=== PATIENT | male | born 1970 | race Caucasian/White ===

== ENCOUNTER 2017-03-02 22:52 | Observation (INO) ==
--- NOTE | 2017-03-02 23:13 | Emergency Department Note ---
Disposition Clinical Impression: Altered mental status Disposition: Admitted As Inpatient Referrals: NONE,PCP [Primary Care Provider] - Forms: ED Satisfaction Letter General Adult HPI - General Chief complaint: ED Altered Mental Status Stated complaint: Headache Time Seen by Provider: 03/02/17 22:54 Source: EMS Mode of arrival: EMS Limitations: no limitations Nursing Notes Reviewed: Yes Vital Signs Reviewed: Yes - History of Present Illness Pt Subjective Complaint: "I have a headache and I'm homeless" Onset (ago): day(s) (2-3 days) Location: head (Front - radiates to top of head) Radiation: other (top of head) Pain Severity: moderate Pain Scale: 5 Quality: aching Consistency: constant Improves with: nothing Worsens with: nothing Associated symptoms: Reports: cough, fever/chills, malaise. Denies: confusion, chest pain, diaphoresis, loss of appetite, nausea/vomiting, rash, seizure, shortness of breath, syncope, weakness Treatments Prior to Arrival: none (Although patient has three different hospital bands on and says he wasseen at these other hospitals for a headache as well) - Related Data Allergies Allergy/AdvReac Type Severity Reaction Status Date / Time No Known Allergies Allergy Verified 03/02/17 23:47 All systems ED: reviewed and negative except as stated. Review of Systems: As Per HPI Constitutional: Reports: fever. Denies: chills, weakness Eyes: Denies: eye pain, eye discharge, vision change ENT ED: Reports: congestion. Denies: ear pain, throat pain, hearing loss, dysphagia Cardiovascular: Denies: chest pain, palpitations Respiratory: Reports: cough. Denies: dyspnea, wheezes, hemoptysis, stridor, sputum production Gastrointestinal: Reports: nausea, vomiting. Denies: abdominal pain, diarrhea, constipation Genitourinary: Denies: urgency, dysuria, frequency, hematuria Musculoskeletal: Denies: back pain, neck pain, joint swelling, arthralgia Integumentary: Denies: rash, lesions Neurological: Reports: as per HPI, headache. Denies: weakness, numbness, paresthesias, confusion, abnormal gait, vertigo Psychiatric: Denies: depression, suicidal thoughts, homicidal thoughts, auditory hallucinations, visual hallucinations Hematological/Lymphatic: Denies: easy bleeding, easy bruising, lymphadenopathy Allergic/Immunologic: Denies: facial swelling, urticaria, itchy eyes Past Medical History - Past Medical History Attestation: Yes The following information was validated with the patient. COUNT INCLUDES THE [facility] Narrative: Patient is a [place]. He is currently homeless. He used to live in [place]. He walked here. He has three different hospital ID bands on his right arm. Source: patient Medical history: Reports: no medical history Surgical history: Reports: no surgical history Psychiatric history: Reports: no psych history - Social History Smoking Status: Current some day smoker Smokeless Tobacco Status: No Alcohol use: Reports: none Drug use: Reports: none Physical Exam - General Limitations: no limitations General appearance: alert, in no apparent distress, cachectic, other (poor hygiene) - Head Head exam: atraumatic, normocephalic, normal inspection - Eye Eye exam: Present: normal appearance, PERRL, EOMI. Absent: scleral icterus, conjunctival injection, nystagmus, miosis, mydriasis, periorbital swelling - ENT ENT exam: mucous membranes dry, other (crusted rash around nares and upper lip) - Neck Neck exam: Present: normal inspection, full ROM, trachea midline. Absent: tenderness, meningismus, lymphadenopathy - Chest Chest inspection: Present: normal inspection, symmetric chest wall rise - Respiratory Respiratory exam: Present: normal lung sounds bilaterally. Absent: respiratory distress, wheezes, stridor, accessory muscle use, prolonged expiratory phase - Cardiovascular Cardiovascular exam: Present: regular rate, normal rhythm, normal heart sounds - Extremities Exam Extremities exam: Present: full ROM, normal capillary refill. Absent: pedal edema - Expanded Lower Extremity Exam Gait: observed and normal - Back Exam Back exam: Present: full ROM. Absent: tenderness - Neurological Exam Neurological exam: Present: alert, CN II-XII intact, normal gait. Absent: oriented X3 (oriented to person and year - unsure of location) - Skin Skin exam: Present: warm, dry, intact, normal color Course Course Narrative: PAtient brought from [facility] by perez to the ER for evaluation of AMS. Perez reported "not altered" however upon initial assessment by the nurse, patient is altered. He complains of a headache. He tells the nurse it began 85 years ago. He tells me it began about 2 days ago. He stated that he had taken "A bunch of aspirin" which did not help. Later he stated that he had not taken any meds. He told the nurse that he just returned from [place] 2 weeks ago. He told me that he walked here from [place] looking for work. He is dishevelled, cachectic, disoriented and has very poor hygiene. He is polite and cooperative with the exam. He did not ask for pain meds, but did ask for something to eat. Tylenol, food, labs, CT head and CXR ordered. Case discussed with Dr. Richmond. He has had face to face time with the patient, has reviewed the EKG, added a troponin, and otherwise agrees with the plan. CT is normal, CXR normal. Labs are essentially normal. EKG shows sinus arrhythmia with 2mm of ST elevation in II, III, AVF and V@, V3. There are no reciprocal changes. Repeat EKG looks similar. Patient has no chest pain, dizziness, syncope, dyspnea or DAVID[place]. Vital Signs Temperature 98.0 F 03/02/17 22:54 Pulse Rate 68 03/02/17 22:54 Respiratory Rate 18 03/02/17 22:54 Blood Pressure 114/81 03/02/17 22:54 O2 Sat by Pulse Oximetry 96 03/02/17 22:54 Temperature 98.0 F 03/02/17 22:54 Pulse Rate 61 03/03/17 02:57 Respiratory Rate 13 03/03/17 02:57 Blood Pressure 107/57 03/03/17 02:57 O2 Sat by Pulse Oximetry 99 03/03/17 02:57 Oxygen Delivery Oxygen Delivery Nasal Cannula Medical Decision Making - Lab Data Result diagrams: 03/02/17 23:24 03/02/17 23:24 Lab Results 03/02/17 03/02/17 03/02/17 Range/Units 23:24 23:24 23:24 WBC 9.3 (4.3-11.1) K/mcL RBC 3.54 L (4.19-5.50) M/mcL Hgb 11.8 L (12.9-16.9) g/dL Hct 36.1 L (37.5-50.1) % MCV 102.0 H (83.0-100.0) fL MCH 33.3 (28.0-33.3) pg MCHC 32.7 (31.6-35.5) g/dL RDW 13.0 (11.5-14.5) % Plt Count 262 (140-400) K/mcL MPV 9.4 (9.4-12.4) fL Immature Gran % 0.3 (0-4) % Seg Neutrophils % 73.0 % Lymphocytes % 18.5 % Monocytes % 6.9 % Eosinophils % 1.0 % Basophils % 0.3 % Neutrophils # 6.8 (1.6-8.9) K/mcL Lymphocytes # 1.7 (0.6-4.6) K/mcL Monocytes # 0.6 (0.0-1.3) K/mcL Eosinophils # 0.1 (0.0-0.6) K/mcL Basophils # 0.0 (0.0-0.2) K/mcL Sodium 140 (136-145) mEq/L Potassium 3.7 (3.5-4.5) mEq/L Chloride 110 H (98-109) mEq/L Carbon Dioxide 23 (19-29) mEq/L BUN 22 (8-26) mg/dL Creatinine 0.85 (0.72-1.25) mg/dL Est GFR ( Amer) > 60 (> 60) Est GFR (Non-Af Amer) > 60 (> 60) BUN/Creatinine Ratio 26 (6-26) Glucose 96 (70-99) mg/dL Calculated Osmolality 293 (280-300) Calcium 8.4 L (8.6-10.8) mg/dL Magnesium 2.0 (1.6-2.6) mg/dL Total Bilirubin 0.4 (0.2-1.2) mg/dL Direct Bilirubin 0.1 (0.0-0.5) mg/dL Indirect Bilirubin 0.3 (0.0-1.2) mg/dL AST 20 (5-34) Units/L ALT 15 (0-55) Units/L Alkaline Phosphatase 68 (38-126) Units/L Ammonia 33 (18-72) mcmol/L Troponin I (0-0.03) ng/mL Serum Total Protein 6.5 (6.0-8.3) g/dL Albumin 3.5 (3.5-5.0) g/dL Globulin 3.0 (2.4-3.5) g/dL Albumin/Globulin Ratio 1.2 (1.1-2.2) Urine Color (Yellow) Urine Clarity (Clear) Urine pH (5.0-8.0) pH Units Ur Specific [place] (1.010-1.025) Urine Protein (Neg-Trace) mg/dL Urine Glucose (UA) (Normal) mg/dL Urine Ketones (Negative) mg/dL Urine Blood (Negative) Urine Nitrite (Negative) Urine Bilirubin (Negative) Urine Urobilinogen (Normal) mg/dL Ur Leukocyte Esterase (Negative) Ur Culture Indicated? (NO) CSF Volume mL CSF Appearance (Clear) CSF Color (Colorless) CSF RBC (0.000 - 0.002) M/mcL CSF Tot Nucleated Cells (0-5) TNC/mcL CSF Seg Neutrophils CSF Band Neutrophils % CSF Lymphocytes % CSF Monocytes % CSF Eosinophils % CSF Basophils % CSF Other Cells % CSF Glucose (40-70) mg/dL CSF Xanth Comm (Not Observe) CSF Total Protein (15-45) mg/dL Salicylates < 5.0 L (15.0-30.0) mg/dL Urine Opiates Screen (Dfgmiu=650) ng/mL Acetaminophen < 1.0 L (10-30) mcg/mL Ur Barbiturates Screen (Oopibs=827) ng/mL Ur Phencyclidine Scrn (Cutoff=25) ng/mL Ur Amphetamines Screen (Rqasgx=2675) ng/mL U Benzodiazepines Scrn (Edqftm=722) ng/mL Urine Cocaine Screen (Cutoff= 300) ng/mL U Marijuana (THC) Screen (Cutoff = 50) ng/mL Ethyl Alcohol < 10 (0-10) mg/dL 03/02/17 03/02/17 03/02/17 Range/Units 23:24 23:25 23:25 WBC (4.3-11.1) K/mcL RBC (4.19-5.50) M/mcL Hgb (12.9-16.9) g/dL Hct (37.5-50.1) % MCV (83.0-100.0) fL MCH (28.0-33.3) pg MCHC (31.6-35.5) g/dL RDW (11.5-14.5) % Plt Count (140-400) K/mcL MPV (9.4-12.4) fL Immature Gran % (0-4) % Seg Neutrophils % % Lymphocytes % % Monocytes % % Eosinophils % % Basophils % % Neutrophils # (1.6-8.9) K/mcL Lymphocytes # (0.6-4.6) K/mcL Monocytes # (0.0-1.3) K/mcL Eosinophils # (0.0-0.6) K/mcL Basophils # (0.0-0.2) K/mcL Sodium (136-145) mEq/L Potassium (3.5-4.5) mEq/L Chloride (98-109) mEq/L Carbon Dioxide (19-29) mEq/L BUN (8-26) mg/dL Creatinine (0.72-1.25) mg/dL Est GFR ( Amer) (> 60) Est GFR (Non-Af Amer) (> 60) BUN/Creatinine Ratio (6-26) Glucose (70-99) mg/dL Calculated Osmolality (280-300) Calcium (8.6-10.8) mg/dL Magnesium (1.6-2.6) mg/dL Total Bilirubin (0.2-1.2) mg/dL Direct Bilirubin (0.0-0.5) mg/dL Indirect Bilirubin (0.0-1.2) mg/dL AST (5-34) Units/L ALT (0-55) Units/L Alkaline Phosphatase (38-126) Units/L Ammonia (18-72) mcmol/L Troponin I 0.00 (0-0.03) ng/mL Serum Total Protein (6.0-8.3) g/dL Albumin (3.5-5.0) g/dL Globulin (2.4-3.5) g/dL Albumin/Globulin Ratio (1.1-2.2) Urine Color Yellow (Yellow) Urine Clarity Clear (Clear) Urine pH 6.0 (5.0-8.0) pH Units Ur Specific [place] 1.025 (1.010-1.025) Urine Protein Negative (Neg-Trace) mg/dL Urine Glucose (UA) Normal (Normal) mg/dL Urine Ketones Negative (Negative) mg/dL Urine Blood Negative (Negative) Urine Nitrite Negative (Negative) Urine Bilirubin Negative (Negative) Urine Urobilinogen Normal (Normal) mg/dL Ur Leukocyte Esterase Negative (Negative) Ur Culture Indicated? NO (NO) CSF Volume mL CSF Appearance (Clear) CSF Color (Colorless) CSF RBC (0.000 - 0.002) M/mcL CSF Tot Nucleated Cells (0-5) TNC/mcL CSF Seg Neutrophils CSF Band Neutrophils % CSF Lymphocytes % CSF Monocytes % CSF Eosinophils % CSF Basophils % CSF Other Cells % CSF Glucose (40-70) mg/dL CSF Xanth Comm (Not Observe) CSF Total Protein (15-45) mg/dL Salicylates (15.0-30.0) mg/dL Urine Opiates Screen Negative (Uopxqa=291) ng/mL Acetaminophen (10-30) mcg/mL Ur Barbiturates Screen Negative (Obygny=998) ng/mL Ur Phencyclidine Scrn Negative (Cutoff=25) ng/mL Ur Amphetamines Screen Negative (Uhfnho=0959) ng/mL U Benzodiazepines Scrn Negative (Jvfdjo=871) ng/mL Urine Cocaine Screen Negative (Cutoff= 300) ng/mL U Marijuana (THC) Screen Negative (Cutoff = 50) ng/mL Ethyl Alcohol (0-10) mg/dL 15/ Range/Units 03:15 WBC (4.3-11.1) K/mcL RBC (4.19-5.50) M/mcL Hgb (12.9-16.9) g/dL Hct (37.5-50.1) % MCV (83.0-100.0) fL MCH (28.0-33.3) pg MCHC (31.6-35.5) g/dL RDW (11.5-14.5) % Plt Count (140-400) K/mcL MPV (9.4-12.4) fL Immature Gran % (0-4) % Seg Neutrophils % % Lymphocytes % % Monocytes % % Eosinophils % % Basophils % % Neutrophils # (1.6-8.9) K/mcL Lymphocytes # (0.6-4.6) K/mcL Monocytes # (0.0-1.3) K/mcL Eosinophils # (0.0-0.6) K/mcL Basophils # (0.0-0.2) K/mcL Sodium (136-145) mEq/L Potassium (3.5-4.5) mEq/L Chloride (98-109) mEq/L Carbon Dioxide (19-29) mEq/L BUN (8-26) mg/dL Creatinine (0.72-1.25) mg/dL Est GFR ( Amer) (> 60) Est GFR (Non-Af Amer) (> 60) BUN/Creatinine Ratio (6-26) Glucose (70-99) mg/dL Calculated Osmolality (280-300) Calcium (8.6-10.8) mg/dL Magnesium (1.6-2.6) mg/dL Total Bilirubin (0.2-1.2) mg/dL Direct Bilirubin (0.0-0.5) mg/dL Indirect Bilirubin (0.0-1.2) mg/dL AST (5-34) Units/L ALT (0-55) Units/L Alkaline Phosphatase (38-126) Units/L Ammonia (18-72) mcmol/L Troponin I (0-0.03) ng/mL Serum Total Protein (6.0-8.3) g/dL Albumin (3.5-5.0) g/dL Globulin (2.4-3.5) g/dL Albumin/Globulin Ratio (1.1-2.2) Urine Color (Yellow) Urine Clarity (Clear) Urine pH (5.0-8.0) pH Units Ur Specific [place] (1.010-1.025) Urine Protein (Neg-Trace) mg/dL Urine Glucose (UA) (Normal) mg/dL Urine Ketones (Negative) mg/dL Urine Blood (Negative) Urine Nitrite (Negative) Urine Bilirubin (Negative) Urine Urobilinogen (Normal) mg/dL Ur Leukocyte Esterase (Negative) Ur Culture Indicated? (NO) CSF Volume 4.0 mL CSF Appearance Clear (Clear) CSF Color Colorless (Colorless) CSF RBC < 0.002 (0.000 - 0.002) M/mcL CSF Tot Nucleated Cells < 3 (0-5) TNC/mcL CSF Seg Neutrophils Test Not Performed CSF Band Neutrophils % Test Not Performed CSF Lymphocytes % Test Not Performed CSF Monocytes % Test Not Performed CSF Eosinophils % Test Not Performed CSF Basophils % Test Not Performed CSF Other Cells % Test Not Performed CSF Glucose 72 H (40-70) mg/dL CSF Xanth Comm Not Observed (Not Observe) CSF Total Protein 36 (15-45) mg/dL Salicylates (15.0-30.0) mg/dL Urine Opiates Screen (Ixdqwq=592) ng/mL Acetaminophen (10-30) mcg/mL Ur Barbiturates Screen (Evpfot=234) ng/mL Ur Phencyclidine Scrn (Cutoff=25) ng/mL Ur Amphetamines Screen (Nrppur=8992) ng/mL U Benzodiazepines Scrn (Rgapbc=199) ng/mL Urine Cocaine Screen (Cutoff= 300) ng/mL U Marijuana (THC) Screen (Cutoff = 50) ng/mL Ethyl Alcohol (0-10) mg/dL Attestation Statement - Attestation Attestation: I have personally performed a face to face evaluation on this patient. I have reviewed and agree with the care plan. 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 Has h/o schizophrenia per report. Wearing wristbands from other facilities. I'm told he's been walking/hitchhiking from [place]. Pt is filthy, obviously not caring for himself. EKG is borderline - close to [address] elevation in V3, close to [address] elevation in inferior leads, does not quite meet EKG criteria for STEMI and has no c/o CP/SOB. No reciprocal changes, no old EKGs available for comparison. Second EKG appears as though precordial leads may have been moved as V3 has similar morphology to previous V4. Trending Troponins/EKGs seems the best course here. Given c/o GREER, mental status with unknown baseline, LP is warranted. Pt does not want it, but can obviously not comprehend the risks of refusing and therefore cannot provide an informed refusal for an obviously indicated procedure. Pt required sedation to keep him in ED and to facilitate procedure. After Haldol and Ativan, pt was controlled and no other sedatives were required. I was present and supervising for Dr. Parkinson's LP, see his procedure note for details. Hospitalist paged for admission.
[2017-03-02 23:33] LABS: Bilirubin,Urine Negative (Negative); Blood,Urine Negative (Negative); Clarity,Urine Clear (Clear); Color,Urine Yellow (Yellow); Glucose,Urine (UA) Normal (Normal); Ketones,Urine Negative (Negative); Leukocyte Esterase,Urine Negative (Negative); Nitrite,Urine Negative (Negative); Protein,Urine Negative (Neg-Trace); Specific Gravity,Urine 1.025 (1.010-1.025); Urobilinogen,Urine Normal (Normal)
[2017-03-02 23:33] LABS: Basophils % 0.3 %; Eosinophils # 0.1 K/mcL (0.0-0.6); Hematocrit 36.1 % (37.5-50.1); Hemoglobin 11.8 g/dL (12.9-16.9); Immature Granulocytes % 0.3 % (0-4); Lymphocytes # 1.7 K/mcL (0.6-4.6); Lymphocytes % 18.5 %; Mean Corpuscular HGB Conc 32.7 g/dL (31.6-35.5); Mean Corpuscular Hemoglobin 33.3 pg (28.0-33.3); Mean Platelet Volume 9.4 fL (9.4-12.4); Monocytes # 0.6 K/mcL (0.0-1.3); Monocytes % 6.9 %; Neutrophils # 6.8 K/mcL (1.6-8.9); Platelet Count 262 K/mcL (140-400); Red Blood Count 3.54 M/mcL (4.19-5.50)
[2017-03-02 23:38] LABS: Amphetamine Screen,Urine Negative ng/mL (Cutoff=1000); Barbiturate Screen,Urine Negative ng/mL (Cutoff=200); Benzodiazepines Screen,Urine Negative ng/mL (Cutoff=200); Cannabinoid Screen,Urine Negative ng/mL (Cutoff = 50); Cocaine Screen,Urine Negative ng/mL (Cutoff= 300); Opiate Screen,Urine Negative ng/mL (Cutoff=300); Phencyclidine Screen,Urine Negative ng/mL (Cutoff=25)
[2017-03-02 23:48] LABS: Acetaminophen < 1.0 mcg/mL (10-30); Alanine Aminotransferase 15 Units/L (0-55); Albumin 3.5 g/dL (3.5-5.0); Albumin/Globulin Ratio 1.2 (1.1-2.2); Alkaline Phosphatase 68 Units/L (38-126); Aspartate Amino Transferase 20 Units/L (5-34); BUN/Creatinine Ratio 26 (6-26); Bilirubin,Direct 0.1 mg/dL (0.0-0.5); Bilirubin,Indirect 0.3 mg/dL (0.0-1.2); Bilirubin,Total 0.4 mg/dL (0.2-1.2); Blood Urea Nitrogen 22 mg/dL (8-26); Calcium 8.4 mg/dL (8.6-10.8); Carbon Dioxide 23 mEq/L (19-29); Chloride 110 mEq/L (98-109); Ethanol < 10 mg/dL (0-10); Glucose 96 mg/dL (70-99); Osmolality,Calculated 293 (280-300); Potassium 3.7 mEq/L (3.5-4.5); Salicylate < 5.0 mg/dL (15.0-30.0); Sodium 140 mEq/L (136-145); Total Protein 6.5 g/dL (6.0-8.3); eGFR For African Americans > 60 (> 60); eGFR For Non-African Americans > 60 (> 60)
[2017-03-03] MEDS ORDERED: 0.9 % Sodium Chloride 1,000 ML IVC ONE (01:33)
[2017-03-03] MEDS ORDERED: Lidocaine -MPF 2% 5 ML VIAL INFILT ONE (01:33)
[2017-03-03] MEDS ORDERED: Haloperidol Lactate 5 MG/ML VIAL IM STA (01:54)
[2017-03-03] MEDS: Haloperidol Lactate 5 MG/ML VIAL IVP ONE ×2 (02:10→05:21)
[2017-03-03] MEDS ORDERED: Haloperidol Lactate 5 MG/ML VIAL ONE (02:17)
[2017-03-03] MEDS ORDERED: *HR* LORazepam 2 MG/ML VIAL ONE (02:17)
[2017-03-03] MEDS ORDERED: *HR* LORazepam 2 MG/ML VIAL IVP ONE (02:30)
[2017-03-03] MEDS ORDERED: Haloperidol Lactate 5 MG/ML VIAL IVP ONE ×2 (02:30)
--- NOTE | 2017-03-03 02:43 | Emergency Department Note ---
Disposition Clinical Impression: Altered mental status Qualifiers: Altered mental status type: unspecified Qualified Code(s): R41.82 - Altered mental status, unspecified Disposition: Admitted As Inpatient Referrals: NONE,PCP [Primary Care Provider] - Forms: ED Satisfaction Letter Time of Disposition: 03:26 General Adult HPI - General Chief complaint: ED Altered Mental Status Stated complaint: Headache Time Seen by Provider: 03/02/17 22:54 Source: EMS Mode of arrival: EMS Limitations: no limitations Nursing Notes Reviewed: Yes Vital Signs Reviewed: Yes - History of Present Illness Location: head (Front - radiates to top of head) Pain Scale: 5 Quality: aching Improves with: nothing Worsens with: nothing Associated symptoms: Reports: cough, fever/chills, malaise. Denies: confusion, chest pain, diaphoresis, loss of appetite, nausea/vomiting, rash, seizure, shortness of breath, syncope, weakness Treatments Prior to Arrival: none (Although patient has three different hospital bands on and says he wasseen at these other hospitals for a headache as well) - Related Data Allergies Allergy/AdvReac Type Severity Reaction Status Date / Time No Known Allergies Allergy Verified 03/02/17 23:47 Constitutional: Reports: fever. Denies: chills, weakness Eyes: Denies: eye pain, eye discharge, vision change ENT ED: Reports: congestion. Denies: ear pain, throat pain, hearing loss, dysphagia Cardiovascular: Denies: chest pain, palpitations Respiratory: Reports: cough. Denies: dyspnea, wheezes, hemoptysis, stridor, sputum production Gastrointestinal: Reports: nausea, vomiting. Denies: abdominal pain, diarrhea, constipation Genitourinary: Denies: urgency, dysuria, frequency, hematuria Musculoskeletal: Denies: back pain, neck pain, joint swelling, arthralgia Integumentary: Denies: rash, lesions Neurological: Reports: as per HPI, headache. Denies: weakness, numbness, paresthesias, confusion, abnormal gait, vertigo Psychiatric: Denies: depression, suicidal thoughts, homicidal thoughts, auditory hallucinations, visual hallucinations Hematological/Lymphatic: Denies: easy bleeding, easy bruising, lymphadenopathy Allergic/Immunologic: Denies: facial swelling, urticaria, itchy eyes Past Medical History - Past Medical History Medical history: Reports: no medical history Surgical history: Reports: no surgical history Psychiatric history: Reports: no psych history - Social History Smoking Status: Current some day smoker Smokeless Tobacco Status: No Alcohol use: Reports: none Drug use: Reports: none Physical Exam - General Limitations: no limitations General appearance: alert, in no apparent distress, cachectic, other (poor hygiene) Course Course Narrative: I only performed LP on patient, this note was opened as procedure note, please see Dr. Richmond and Kerri David' notes for event encounter. Vital Signs Temperature 98.0 F 03/02/17 22:54 Pulse Rate 68 03/02/17 22:54 Respiratory Rate 18 03/02/17 22:54 Blood Pressure 114/81 03/02/17 22:54 O2 Sat by Pulse Oximetry 96 03/02/17 22:54 Temperature 98.0 F 03/02/17 22:54 Pulse Rate 61 03/03/17 02:57 Respiratory Rate 13 03/03/17 02:57 Blood Pressure 107/57 03/03/17 02:57 O2 Sat by Pulse Oximetry 99 03/03/17 02:57 Oxygen Delivery Oxygen Delivery Nasal Cannula Procedures - Lumbar Puncture Time Out Performed: Yes Patient Position: upright Skin Prep: Povidone-Iodine 1% Local Anesthetic: lidocaine 1% Amount of anesthesia used (mL): 5 Spinal Needle Gauge: 20G Interspace Used: L4-L5 Fluid Initially Obtained: clear Additional Comments: Consent implied as patient was altered, unable understand risks and benefits. He was sedated during the procedure with haldol and etomidate, held upright by Dr. Richmond who was present during entire procedure. Patient was on oxygen, ETCO2 monitoring, cardiac and continuous pulse ox monitoring during proedure. Sedation performed by Dr. Richmond and Dr. Garcia. Please see their notes for any additional details. No complications, tolerated well. Complications: none Medical Decision Making - Lab Data Result diagrams: 03/02/17 23:24 03/02/17 23:24 Lab Results 03/02/17 03/02/17 03/02/17 Range/Units 23:24 23:24 23:24 WBC 9.3 (4.3-11.1) K/mcL RBC 3.54 L (4.19-5.50) M/mcL Hgb 11.8 L (12.9-16.9) g/dL Hct 36.1 L (37.5-50.1) % MCV 102.0 H (83.0-100.0) fL MCH 33.3 (28.0-33.3) pg MCHC 32.7 (31.6-35.5) g/dL RDW 13.0 (11.5-14.5) % Plt Count 262 (140-400) K/mcL MPV 9.4 (9.4-12.4) fL Immature Gran % 0.3 (0-4) % Seg Neutrophils % 73.0 % Lymphocytes % 18.5 % Monocytes % 6.9 % Eosinophils % 1.0 % Basophils % 0.3 % Neutrophils # 6.8 (1.6-8.9) K/mcL Lymphocytes # 1.7 (0.6-4.6) K/mcL Monocytes # 0.6 (0.0-1.3) K/mcL Eosinophils # 0.1 (0.0-0.6) K/mcL Basophils # 0.0 (0.0-0.2) K/mcL Sodium 140 (136-145) mEq/L Potassium 3.7 (3.5-4.5) mEq/L Chloride 110 H (98-109) mEq/L Carbon Dioxide 23 (19-29) mEq/L BUN 22 (8-26) mg/dL Creatinine 0.85 (0.72-1.25) mg/dL Est GFR ( Amer) > 60 (> 60) Est GFR (Non-Af Amer) > 60 (> 60) BUN/Creatinine Ratio 26 (6-26) Glucose 96 (70-99) mg/dL Calculated Osmolality 293 (280-300) Calcium 8.4 L (8.6-10.8) mg/dL Magnesium 2.0 (1.6-2.6) mg/dL Total Bilirubin 0.4 (0.2-1.2) mg/dL Direct Bilirubin 0.1 (0.0-0.5) mg/dL Indirect Bilirubin 0.3 (0.0-1.2) mg/dL AST 20 (5-34) Units/L ALT 15 (0-55) Units/L Alkaline Phosphatase 68 (38-126) Units/L Ammonia 33 (18-72) mcmol/L Troponin I (0-0.03) ng/mL Serum Total Protein 6.5 (6.0-8.3) g/dL Albumin 3.5 (3.5-5.0) g/dL Globulin 3.0 (2.4-3.5) g/dL Albumin/Globulin Ratio 1.2 (1.1-2.2) Urine Color (Yellow) Urine Clarity (Clear) Urine pH (5.0-8.0) pH Units Ur Specific [place] (1.010-1.025) Urine Protein (Neg-Trace) mg/dL Urine Glucose (UA) (Normal) mg/dL Urine Ketones (Negative) mg/dL Urine Blood (Negative) Urine Nitrite (Negative) Urine Bilirubin (Negative) Urine Urobilinogen (Normal) mg/dL Ur Leukocyte Esterase (Negative) Ur Culture Indicated? (NO) Salicylates < 5.0 L (15.0-30.0) mg/dL Urine Opiates Screen (Uktzel=940) ng/mL Acetaminophen < 1.0 L (10-30) mcg/mL Ur Barbiturates Screen (Algzab=552) ng/mL Ur Phencyclidine Scrn (Cutoff=25) ng/mL Ur Amphetamines Screen (Pqymiu=7219) ng/mL U Benzodiazepines Scrn (Lvkrcg=490) ng/mL Urine Cocaine Screen (Cutoff= 300) ng/mL U Marijuana (THC) Screen (Cutoff = 50) ng/mL Ethyl Alcohol < 10 (0-10) mg/dL 03/02/17 03/02/17 03/02/17 Range/Units 23:24 23:25 23:25 WBC (4.3-11.1) K/mcL RBC (4.19-5.50) M/mcL Hgb (12.9-16.9) g/dL Hct (37.5-50.1) % MCV (83.0-100.0) fL MCH (28.0-33.3) pg MCHC (31.6-35.5) g/dL RDW (11.5-14.5) % Plt Count (140-400) K/mcL MPV (9.4-12.4) fL Immature Gran % (0-4) % Seg Neutrophils % % Lymphocytes % % Monocytes % % Eosinophils % % Basophils % % Neutrophils # (1.6-8.9) K/mcL Lymphocytes # (0.6-4.6) K/mcL Monocytes # (0.0-1.3) K/mcL Eosinophils # (0.0-0.6) K/mcL Basophils # (0.0-0.2) K/mcL Sodium (136-145) mEq/L Potassium (3.5-4.5) mEq/L Chloride (98-109) mEq/L Carbon Dioxide (19-29) mEq/L BUN (8-26) mg/dL Creatinine (0.72-1.25) mg/dL Est GFR ( Amer) (> 60) Est GFR (Non-Af Amer) (> 60) BUN/Creatinine Ratio (6-26) Glucose (70-99) mg/dL Calculated Osmolality (280-300) Calcium (8.6-10.8) mg/dL Magnesium (1.6-2.6) mg/dL Total Bilirubin (0.2-1.2) mg/dL Direct Bilirubin (0.0-0.5) mg/dL Indirect Bilirubin (0.0-1.2) mg/dL AST (5-34) Units/L ALT (0-55) Units/L Alkaline Phosphatase (38-126) Units/L Ammonia (18-72) mcmol/L Troponin I 0.00 (0-0.03) ng/mL Serum Total Protein (6.0-8.3) g/dL Albumin (3.5-5.0) g/dL Globulin (2.4-3.5) g/dL Albumin/Globulin Ratio (1.1-2.2) Urine Color Yellow (Yellow) Urine Clarity Clear (Clear) Urine pH 6.0 (5.0-8.0) pH Units Ur Specific [place] 1.025 (1.010-1.025) Urine Protein Negative (Neg-Trace) mg/dL Urine Glucose (UA) Normal (Normal) mg/dL Urine Ketones Negative (Negative) mg/dL Urine Blood Negative (Negative) Urine Nitrite Negative (Negative) Urine Bilirubin Negative (Negative) Urine Urobilinogen Normal (Normal) mg/dL Ur Leukocyte Esterase Negative (Negative) Ur Culture Indicated? NO (NO) Salicylates (15.0-30.0) mg/dL Urine Opiates Screen Negative (Nqcbgg=080) ng/mL Acetaminophen (10-30) mcg/mL Ur Barbiturates Screen Negative (Mxlrso=289) ng/mL Ur Phencyclidine Scrn Negative (Cutoff=25) ng/mL Ur Amphetamines Screen Negative (Emiflg=8263) ng/mL U Benzodiazepines Scrn Negative (Uxmxtl=734) ng/mL Urine Cocaine Screen Negative (Cutoff= 300) ng/mL U Marijuana (THC) Screen Negative (Cutoff = 50) ng/mL Ethyl Alcohol (0-10) mg/dL
[2017-03-03] MEDS ORDERED: *HR* Etomidate 20 MG/10 ML AMPUL IVP ONE (02:45)
[2017-03-03 03:45] LABS: Red Blood Cell,CSF < 0.002 M/mcL
[2017-03-03 03:58] LABS: Glucose,CSF 72 mg/dL (40-70); Total Protein,CSF 36 mg/dL (15-45)
[2017-03-03 04:04] LABS: Appearance,CSF Clear (Clear)
[2017-03-03] MEDS ORDERED: Ondansetron ODT 4 MG TAB.RAPDIS SL PRN (04:35)
[2017-03-03] MEDS ORDERED: Acetaminophen 325 MG TABLET PO PRN (04:35)
--- NOTE | 2017-03-03 04:57 | Internal Med History&Physical ---
<Kristian Lynn - Last Filed: 03/03/17 05:33> Date of Encounter: 03/03/17 Time of Encounter: 04:15 Assessment and Plan (1) Acute delirium Current visit: Yes Status: Acute Lumbar puncture results were not indicative of any infection. CSF culture was negative. UA was negative for infection. Acute delirium likely secondary psychiatric history. - Psych consult. (2) Abnormal EKG Current visit: Yes Status: Acute EKG shows borderline ST-elevations in inferior leads. Troponin on arrival was negative. Patient reports no chest pain per ED. - Continue to trend troponins. - Echocardiogram. - Cardiology consult. (3) DVT prophylaxis Current visit: Yes Status: Acute - Lovenox 40 mg IV sq qd. Internal Medicine - H&P: HPI Chief complaint: GREER Admitted From: Emergency Dept History of present illness: Mr. Murray is a 47 year old male with a PMH of schizophrenia that presents for GREER and AMS. Patient was brought into the ER by [facility] office by humberto. He told the ED that his GREER began 2 days ago and had taken "a bunch of aspirin" to to alleviate the pain, but it did not seem to help. Patient reported no chest pain, dizziness, syncope, dyspnea or DAVIDSON. Patient seemed altered and would give conflicting accounts to the ED. He is currently homeless. He states that he had walked from [place] to here. He had tags from 3 different hospitals on his arm when he came in. Patient was given haldol and etomidate for sedation in order to perform a lumbar puncture in the ED. When I saw the patient, I was unable to get a history from him due to him being sedated. Past Med Surg Social Fam HX - Past Medical History Medical history: no medical history Psychiatric history: no psych history - Past Surgical History Surgical History: no surgical history - Social History Smoking Status: Current some day smoker Smokeless Tobacco Status: No Alcohol use: none Drug use: none Internal Medicine - H&P: Meds 3 Allergy/AdvReac Type Severity Reaction Status Date / Time No Known Allergies Allergy Verified 03/02/17 23:47 ROS unobtainable: due to mental status All Systems PM: A 10-system review of systems was performed and is negative for pertinent findings except as documented above in the HPI. - Constitutional Vitals: Temp Pulse Resp BP Pulse Ox 98.0 F 61 13 107/57 99 03/02/17 22:54 03/03/17 02:57 03/03/17 02:57 03/03/17 02:57 03/03/17 02:57 General appearance: Present: cachectic, disheveled - Respiratory Respiratory exam: Present: CTAB. Absent: rales, respiratory distress, rhonchi, wheezes - Cardiovascular Cardiovascular exam: Present: RRR, +S1, +S2 - GI/Abdominal GI/Abdominal exam: Present: normal bowel sounds, soft - Extremities Exam Extremities exam: Present: normal capillary refill, radial pulses palpable and symmetrical. Absent: cyanotic, pedal edema Internal Med - H&P Results - Labs CBC & Chem 7: 03/02/17 23:24 03/02/17 23:24 Labs: Short CBC 03/02/17 Range/Units 23:24 WBC 9.3 (4.3-11.1) K/mcL Hgb 11.8 L (12.9-16.9) g/dL Hct 36.1 L (37.5-50.1) % Plt Count 262 (140-400) K/mcL Neutrophils # 6.8 (1.6-8.9) K/mcL BMP 03/02/17 23:24 Sodium 140 Potassium 3.7 Chloride 110 H Carbon Dioxide 23 BUN 22 Creatinine 0.85 Glucose 96 Calcium 8.4 L Cardiac Enzymes 03/02/17 Range/Units 23:24 Troponin I 0.00 (0-0.03) ng/mL Liver Function 03/02/17 Range/Units 23:24 Total Bilirubin 0.4 (0.2-1.2) mg/dL Direct Bilirubin 0.1 (0.0-0.5) mg/dL AST 20 (5-34) Units/L ALT 15 (0-55) Units/L Alkaline Phosphatase 68 (38-126) Units/L Albumin 3.5 (3.5-5.0) g/dL Urine 03/02/17 Range/Units 23:25 Urine Color Yellow (Yellow) Urine Clarity Clear (Clear) Urine pH 6.0 (5.0-8.0) pH Units Ur Specific [place] 1.025 (1.010-1.025) Urine Protein Negative (Neg-Trace) mg/dL Urine Glucose (UA) Normal (Normal) mg/dL - Impressions ITS Impressions Chest X-Ray 03/02/17 23:01 IMPRESSION: No acute disease. D/ / Moe Benavides MD / Moe Benavides MD Interpreting Provider: Moe Benavides MD Head CT 03/02/17 23:03 IMPRESSION: No acute intracranial abnormality. D/ / Rogelio Herrera MD / Rogelio Herrera MD Interpreting Provider: Rogelio Herrera MD <Viktor Milner - Last Filed: 03/03/17 06:39> Date of Encounter: 03/03/17 Internal Medicine - H&P: HPI History of present illness: Mr. Murray is a 47 year old male All Systems PM: A 10-system review of systems was performed and is negative for pertinent findings except as documented above in the HPI. - Constitutional Vitals: Temp Pulse Resp BP Pulse Ox 97.4 F L 52 12 96/50 99 03/03/17 05:22 03/03/17 05:22 03/03/17 05:22 03/03/17 05:22 03/03/17 05:22 Internal Med - H&P Results - Labs CBC & Chem 7: 03/02/17 23:24 03/02/17 23:24 Labs: Cardiac Enzymes 03/03/17 Range/Units 05:33 Troponin I 0.00 (0-0.03) ng/mL - Attending Attestation I examined this patient and my medical decision-making was reviewed with the Resident Physician Dr. Lynn. I agree with the documented findings, disposition and treatment plan as described except to the extent set forth below. Mr. Murray is a 47 year old home less pt with a PMH of schizophrenia was brought into the ER by [facility]. Patient reported no chest pain , dizziness, syncope, dyspnea or DAVIDSON. Patient seemed altered and would give conflicting accounts to the ED. He is currently homeless. He states that he had walked from [place] to here. He had tags from 3 different hospitals on his arm when he came in. Patient was given Haldol and etomidate for sedation in order to perform a lumbar puncture in the ED. When I saw the pt, he was sedated, unable to get any history fro pt. Gen: Sedative Chest: Diminished BS b/l basal regions.. No crackles Heart: S1 S2 + RRR No murmurs a/p 1. Acute delirium - mostly due to his underline schizophrenia Reviewed CSF analysis - no signs of infection Consulted Psych for further eval SW consulted for placement 2. Abnormal EKG Reviewed his EKG by myself, showing Non specific ST elevation in inferior leads started him on ASA Trend on Troponin will get an 2 D Echo will consult Card in AM keep him NPO.. If he needs any stress test.
[2017-03-03] MEDS: Aspirin Enteric Coated 81 MG Tablet PO SCH (06:15)
[2017-03-03] MEDS: 0.9 % Sodium Chloride 1,000 ML IVC SCH ×2 (06:16→19:36)
--- NOTE | 2017-03-03 09:45 | Cardiology Consult Note ---
Date of Encounter: 03/03/17 Time of Encounter: 08:45 Assessment and Plan (1) Abnormal EKG Current Visit: Yes Status: Acute Patient is sedated and unarousable Difficult to assess current cardiac status given mental state EKG has nonspecific ST-T wave changes, however not hugely suspicious for ischemia We will get a TTE and check TSH Reassess when patient becomes alert Recommendations to follow Discussion w patient/family: The assessment and plan as outlined above was discussed with the patient and/or family members who expressed understanding and agreement. All questions were answered. Thank you for involving us in the care of your patient. Please call with any questions. History of Present Illness Consult date: 03/02/17 Requesting physician: Kristian Lynn Consult reason: Abnormal EKG Chief complaint: Headache with altered mental status History of present illness: Mr. Murray is a 47 year old male with unknown medical history who presented the ED with GREER and altered mental status. He has apparently been diagnosed with schizophrenia in the past. The patient is sedated at time of exam, and I am unable to retrieve history from him. Instead, I received report from nursing and primary team. The patient apparently came to the ED with 2d history of nonremitting headache for which he took "a bunch of aspirin" and had no benefit. The man is homeless, and says that he walked to this ED from [place]. He was apparently altered at that time. He did not complain of any chest pains or shortness of breath, however an EKG in the ED demonstrated ST-T wave changes that were questionable for ischemia. He has had negative CXR, negative trop x 2. There is no known prior ekg with which to compare. Apparently at time of admission the patient had wristbands for 3 different local hospitals. Past Med Surg Social Fam HX - Past Medical History Medical history: no medical history Psychiatric history: no psych history - Past Surgical History Surgical History: no surgical history - Social History Smoking Status: Current some day smoker Smokeless Tobacco Status: No Alcohol use: none Drug use: none Medications and Allergies Unable To Obtain [Unable to Obtain] 03/03/17 [History] 3 Allergy/AdvReac Type Severity Reaction Status Date / Time No Known Allergies Allergy Verified 03/02/17 23:47 ROS unobtainable: due to mental status Physical Examination Vital Signs, Last 4 Hours Temp Pulse Resp BP Pulse Ox 03/03/17 09:08 97.6 F 58 16 97/54 95 General: No Apparent Distress, Other (Sedated, unresponsive to painful stimuli) HEENT: Atraumatic, Normocephaly, Mucus Membranes Moist Neck: No JVD, Normal carotid pulses Cardiac: Reg Rate and Rhythm, Normal S1 and S2, No Murmur Lungs: Normal Breath Sounds, No Wheeze, Rales, Rhonchi, Other (vibratory quality to lung sounds suggestive of mild obstruction) Neuro: Alert and responsive, No focal deficits noted Abdomen: Soft, Non-Tender Skin: No rashes noted on visualized skin Extremities: No Clubbing, No Cyanosis, No Edema, Normal Pulses Results 03/02/17 23:24 03/02/17 23:24 Lab Results 03/03/17 03/03/17 05:33 05:33 Troponin I 0.00 TSH 1.465 Consult Discharge Plan - Plan Referrals: NONE,PCP [Primary Care Provider] -
--- NOTE | 2017-03-03 12:44 | Event Note ---
Date of Encounter: 03/03/17 Time of Encounter: 12:43 I reviewed TTE. LV function normal. No significant VHD. No obvious cardiac issues at this time. Cardiology will sign off. Your medical management regarding mental status changes. Please call me with any questions or concerns. Thanks, Jasson Harman DO, FACC
[2017-03-03] MEDS ORDERED: Ziprasidone injection 20 MG/ML VIAL IM PRN (15:18)
[2017-03-03] MEDS: *HR* LORazepam 2 MG/ML VIAL IVP SCH ×2 (16:07→21:33)
--- NOTE | 2017-03-03 16:23 | Consult Note ---
Date of Encounter: 03/03/17 Time of Encounter: 15:30 Assessment & Recommendation (1) Schizophrenia, catatonic, chronic with acute exacerbation Current visit: Yes Status: Acute Assessment & Recommendation: This patient is under involuntary hold. He is very likely that he has schizophrenia. Catatonia can be treated with lorazepam 2 mg IV or IM 3 times a day is a starting dose. Doses up to 20 or 30 mg per day may be necessary for some patients. Monitoring for tolerance and safety may be helpful. It is also possible he may switch and become combative Geodon 20 mg IM up to 40 mg in 24 hours can be administered or Abilify 9.75 mg IM can be used. It is possible that the patient has neuroleptic induced catatonia. However the absence of rigidity the presence of paratonia the lack of tremor suggest that he does not have this. It is unlikely that he has neuroleptic malignant syndrome as CPK can be drawn with other labs and if elevated this could be investigated. Neuroleptic malignant syndrome includes elevated temperature muscle rigidity autonomic disturbance and confusion however this presentation for this patient does not appear to suggest risk for neuroleptic malignant syndrome. 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 To look up more about catatonia due to a general medical condition one could look at up-to-date or other web-based learning. There is no specific treatment protocol for catatonia but I have tried to outline essential elements from recent perusal of the research. Catatonia nonetheless is a psychiatric condition and involuntary hospitalization should be pursued. For patient's that Inés respond to lorazepam and other medications electroconvulsive therapy or ECT may be helpful this would require transfer to another institution. There are further legal hurdles for emergency ECT on an involuntarily hospitalize patient therefore continuing medical treatment as advised For more information on catatonia and neuroleptic malignant syndrome please go to [email or web address] History of Present Illness Requesting Physician: Leia Gonzalez CNP Reason for consult: deliriu History of present illness: Mr. Murray is a 47 year old male This patient was uncooperative and the interview. He did submit to part of the exam. He has immobility stupor mutism negativism combativeness posturing and paratonia. He responded to some stimulation with movement but did not speak directly. Patient has a history of schizophrenia. He was pretreated with Haldol before I saw him. He has received treatment with Ativan. He did express delusions. The diagnosis is most likely schizophrenia catatonic type or possibly catatonia due to a general medical condition this may include a neuroleptic-induced catatonia given the recent administration of Haldol. My recommendation would be to begin lorazepam 2 mg IV or IM U may repeat this in an hour a starting dose may be 6 mg per day such as 2 mg every 6 hours if there is a positive response. For agitation combativeness I would recommend Geodon 20 mg IM can be repeated up to 40 mg in a 24-hour period generally not given along with Ativan. Also Abilify 9.75 mg IM could be used for acute agitation or psychosis. I would avoid haloperidol but recognized that this may be necessary for the patient's overall treatment. Other treatments they can be considered include memantine 5 mg twice a day and zolpidem 10 mg daily at bedtime The difficulty with patients with catatonia is they may wake up and become combative. This patient is on an emergency hold and medicines may be given an emergent fashion. He will require involuntary hospitalization. If lorazepam is noted immediately or fully effective than electroconvulsive therapy may be considered this can be available by transfer to [facility], [facility], or [facility] If the patient is medically stable then psychiatric hospitalization can be sought. I doubt the presence of delirium but it is difficult to tell. Furthermore there are some patients that have catatonia and hypoactive delirium. Nonetheless I recommend first line treatment is lorazepam CC: Leia Gonzalez CNP Past Med Surg Social Fam HX - Past Medical History Medical history: no medical history - Past Surgical History Surgical History: no surgical history - Social History Smoking Status: Current some day smoker Smokeless Tobacco Status: No Alcohol use: none Drug use: none Medications & Allergies Unable To Obtain [Unable to Obtain] 03/03/17 [History] 3 Allergy/AdvReac Type Severity Reaction Status Date / Time No Known Allergies Allergy Verified 03/02/17 23:47 Mental Status Exam Patient orientation: Yes Other Level of alertness: Does not respond to painful stimuli Patient appearance: Unkempt, Disheveled, Malodorous Behavior: uncooperative Psychomotor activity: Catatonic Eye contact: Avoids Eye Contact Mood description: Other Affect description: other Speech pattern: Non-verbal Speech volume: No speech Thought content: Yes Paranoid delusion Attention span: Unable to Focus (Posturing immobility, catatonic stupor, negativism combativeness) Results - Vital Signs Vital signs: Temp Pulse Resp BP Pulse Ox 97.6 F 58 16 97/54 95 03/03/17 09:08 03/03/17 09:08 03/03/17 09:08 03/03/17 09:08 03/03/17 09:08 - Labs Labs: Laboratory Last Values WBC 9.3 K/mcL (4.3-11.1) 03/02/17 23:24 RBC 3.54 M/mcL (4.19-5.50) L 03/02/17 23:24 Hgb 11.8 g/dL (12.9-16.9) L 03/02/17 23:24 Hct 36.1 % (37.5-50.1) L 03/02/17 23:24 MCV 102.0 fL (83.0-100.0) H 03/02/17 23:24 MCH 33.3 pg (28.0-33.3) 03/02/17 23:24 MCHC 32.7 g/dL (31.6-35.5) 03/02/17 23:24 RDW 13.0 % (11.5-14.5) 03/02/17 23:24 Plt Count 262 K/mcL (140-400) 03/02/17 23:24 MPV 9.4 fL (9.4-12.4) 03/02/17 23:24 Immature Gran % 0.3 % (0-4) 03/02/17 23:24 Seg Neutrophils % 73.0 % 03/02/17 23:24 Lymphocytes % 18.5 % 03/02/17 23:24 Monocytes % 6.9 % 03/02/17 23:24 Eosinophils % 1.0 % 03/02/17 23:24 Basophils % 0.3 % 03/02/17 23:24 Neutrophils # 6.8 K/mcL (1.6-8.9) 03/02/17 23:24 Lymphocytes # 1.7 K/mcL (0.6-4.6) 03/02/17 23:24 Monocytes # 0.6 K/mcL (0.0-1.3) 03/02/17 23:24 Eosinophils # 0.1 K/mcL (0.0-0.6) 03/02/17 23:24 Basophils # 0.0 K/mcL (0.0-0.2) 03/02/17 23:24 Sodium 140 mEq/L (136-145) 03/02/17 23:24 Potassium 3.7 mEq/L (3.5-4.5) 03/02/17 23:24 Chloride 110 mEq/L (98-109) H 03/02/17 23:24 Carbon Dioxide 23 mEq/L (19-29) 03/02/17 23:24 BUN 22 mg/dL (8-26) 03/02/17 23:24 Creatinine 0.85 mg/dL (0.72-1.25) 03/02/17 23:24 Est GFR ( Amer) > 60 (> 60) 03/02/17 23:24 Est GFR (Non-Af Amer) > 60 (> 60) 03/02/17 23:24 BUN/Creatinine Ratio 26 (6-26) 03/02/17 23:24 Glucose 96 mg/dL (70-99) 03/02/17 23:24 Calculated Osmolality 293 (280-300) 03/02/17 23:24 Calcium 8.4 mg/dL (8.6-10.8) L 03/02/17 23:24 Magnesium 2.0 mg/dL (1.6-2.6) 03/02/17 23:24 Total Bilirubin 0.4 mg/dL (0.2-1.2) 03/02/17 23:24 Direct Bilirubin 0.1 mg/dL (0.0-0.5) 03/02/17 23:24 Indirect Bilirubin 0.3 mg/dL (0.0-1.2) 03/02/17 23:24 AST 20 Units/L (5-34) 03/02/17 23:24 ALT 15 Units/L (0-55) 03/02/17 23:24 Alkaline Phosphatase 68 Units/L (38-126) 03/02/17 23:24 Ammonia 33 mcmol/L (18-72) 03/02/17 23:24 Troponin I 0.02 ng/mL (0-0.03) 03/03/17 11:18 Serum Total Protein 6.5 g/dL (6.0-8.3) 03/02/17 23:24 Albumin 3.5 g/dL (3.5-5.0) 03/02/17 23:24 Globulin 3.0 g/dL (2.4-3.5) 03/02/17 23:24 Albumin/Globulin Ratio 1.2 (1.1-2.2) 03/02/17 23:24 TSH 1.465 mcIU/mL (0.350-4.840) 03/03/17 05:33 Urine Color Yellow (Yellow) 03/02/17 23:25 Urine Clarity Clear (Clear) 03/02/17 23:25 Urine pH 6.0 pH Units (5.0-8.0) 03/02/17 23:25 Ur Specific [place] 1.025 (1.010-1.025) 03/02/17 23:25 Urine Protein Negative mg/dL (Neg-Trace) 03/02/17 23:25 Urine Glucose (UA) Normal mg/dL (Normal) 03/02/17 23:25 Urine Ketones Negative mg/dL (Negative) 03/02/17 23:25 Urine Blood Negative (Negative) 03/02/17 23:25 Urine Nitrite Negative (Negative) 03/02/17 23:25 Urine Bilirubin Negative (Negative) 03/02/17 23:25 Urine Urobilinogen Normal mg/dL (Normal) 03/02/17 23:25 Ur Leukocyte Esterase Negative (Negative) 03/02/17 23:25 Ur Culture Indicated? NO (NO) 03/02/17 23:25 CSF Volume 4.0 mL 03/03/17 03:15 CSF Appearance Clear (Clear) 03/03/17 03:15 CSF Color Colorless (Colorless) 03/03/17 03:15 CSF RBC < 0.002 M/mcL (0.000-0.002) 03/03/17 03:15 CSF Tot Nucleated Cells < 3 TNC/mcL (0-5) 03/03/17 03:15 CSF Seg Neutrophils Test Not Performed 03/03/17 03:15 CSF Band Neutrophils % Test Not Performed 03/03/17 03:15 CSF Lymphocytes % Test Not Performed 03/03/17 03:15 CSF Monocytes % Test Not Performed 03/03/17 03:15 CSF Eosinophils % Test Not Performed 03/03/17 03:15 CSF Basophils % Test Not Performed 03/03/17 03:15 CSF Other Cells % Test Not Performed 03/03/17 03:15 CSF Glucose 72 mg/dL (40-70) H 03/03/17 03:15 CSF Xanth Comm Not Observed (Not Observe) 03/03/17 03:15 CSF Total Protein 36 mg/dL (15-45) 03/03/17 03:15 Salicylates < 5.0 mg/dL (15.0-30.0) L 03/02/17 23:24 Urine Opiates Screen Negative ng/mL (Cqiaif=506) 03/02/17 23:25 Acetaminophen < 1.0 mcg/mL (10-30) L 03/02/17 23:24 Ur Barbiturates Screen Negative ng/mL (Jeenab=548) 03/02/17 23:25 Ur Phencyclidine Scrn Negative ng/mL (Cutoff=25) 03/02/17 23:25 Ur Amphetamines Screen Negative ng/mL (Kagzfx=7182) 03/02/17 23:25 U Benzodiazepines Scrn Negative ng/mL (Vuhlfh=020) 03/02/17 23:25 Urine Cocaine Screen Negative ng/mL (Cutoff= 300) 03/02/17 23:25 U Marijuana (THC) Screen Negative ng/mL (Cutoff = 50) 03/02/17 23:25 Ethyl Alcohol < 10 mg/dL (0-10) 03/02/17 23:24 Consult Discharge Plan - Plan Referrals: NONE,PCP [Primary Care Provider] -
--- NOTE | 2017-03-03 17:07 | Electrocardiograph Report ---
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
--- NOTE | 2017-03-03 17:10 | Electrocardiograph Report ---
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
--- NOTE | 2017-03-03 17:11 | Electrocardiograph Report ---
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
--- NOTE | 2017-03-03 17:18 | Event Note ---
Date of Encounter: 03/03/17 Time of Encounter: 10:15 Seen and examined at bedside. Remains in a Catatonic State; He Is Arousable Will Moan out and Change Position Spontaneously but Is Not Purposeful Does Not Interact. Catatonic schizophrenia: Evaluated by psychiatry who recommended scheduled Ativan 2 mg IV 3 times a day. Can go up to 20 or 30 mg per day if needed. Avoid Haldol. Use Geodon or Abilify PRN for combativeness/agitation. He will need inpatient psychiatric hospitalization once medically stable. Can consider transfer to Hospital offers ECT once his mentation/psychosis improves and/or we are able to contact family/next of kin. Continue one-to-one sitter for now.
[2017-03-03] MEDS ORDERED: Water for inj. (sterile) 10 ML IV ONE (21:31)
[2017-03-04] MEDS ORDERED: 0.9 % Sodium Chloride 1,000 ML ONE (06:06)
[2017-03-04 06:32] LABS: BUN/Creatinine Ratio 16 (6-26); Blood Urea Nitrogen 13 mg/dL (8-26); Calcium 8.7 mg/dL (8.6-10.8); Carbon Dioxide 25 mEq/L (19-29); Chloride 112 mEq/L (98-109); Glucose 91 mg/dL (70-99); Hematocrit 38.3 % (37.5-50.1); Hemoglobin 12.2 g/dL (12.9-16.9); Mean Corpuscular HGB Conc 31.9 g/dL (31.6-35.5); Mean Corpuscular Hemoglobin 32.8 pg (28.0-33.3); Mean Platelet Volume 9.1 fL (9.4-12.4); Osmolality,Calculated 292 (280-300); Platelet Count 268 K/mcL (140-400); Red Blood Count 3.72 M/mcL (4.19-5.50); Sodium 141 mEq/L (136-145); eGFR For African Americans > 60 (> 60); eGFR For Non-African Americans > 60 (> 60)
[2017-03-04] MEDS: Aspirin Enteric Coated 81 MG Tablet PO SCH (09:02)
[2017-03-04] MEDS: *HR* LORazepam 2 MG/ML VIAL IVP SCH ×3 (09:05→21:32)
--- NOTE | 2017-03-04 14:21 | Internal Med Progress Note ---
Date of Encounter: 03/04/17 Time of Encounter: 14:14 - Assessment and plan (1) Schizophrenia, catatonic, chronic with acute exacerbation Current Visit: Yes Status: Acute Assessment and plan: Was transferred from [facility] with altered mental status. Apparently was acutely confused, disoriented in ED. He was sedated and underwent an LP. He then became lethargic and would not really respond or follow commands after the LP. Evaluated by psychiatry who suspects catatonic schizophrenia and recommended scheduled Ativan TID. Mentation significantly improved on 03/04; he is awake, oriented to self and no seasonal hospital. Still appears somewhat altered however baseline unknown. Unclear if the Ativan is helping or patient is improving to baseline. Continue Ativan, monitor for sedation/lethargy. Avoid Haldol. Use Geodon or Abilify PRN for combativeness/ agitation. He will need inpatient psychiatric hospitalization once medically stable. He is pink slipped and cannot leave AMA. Continue one-to-one sitter. (2) DVT prophylaxis Current Visit: Yes Status: Acute - Time Spent With Patient less than 15 minutes - Subjective Interval history: Seen and examined at bedside. Patient is new to me, information mostly obtained from chart review as patient is a poor historian, mental status seems to be altered and does not provide details. Patient is more awake and responsive today. He knows he is in the hospital says he remembers for diastolic and he was not allowed to leave. He does not remember what happened I am to the hospital. Says he is homeless and has no family. He tells me he is from [place] and has friends there but does not know their numbers. He does not respond to ROS questions, he just stares at me. Says he wants to go home. One-to-one sitter at bedside. - Constitutional Vitals: Temp Pulse Resp BP Pulse Ox 98.1 F 60 16 101/51 96 03/04/17 11:00 03/04/17 11:00 03/04/17 11:00 03/04/17 11:00 03/04/17 11:00 General appearance: Present: cachectic, disheveled, A&O X 2 - Head Head exam: Present: atraumatic, normocephalic - Eye Eye exam: Present: PERRL, conjuntiva pink, sclera anicteric Pupils: Present: PERRL - Neck Neck exam general surgery: Present: supple, trachea midline. Absent: lymphadenopathy - Respiratory Respiratory exam: Present: CTAB. Absent: accessory muscle use, rales, rhonchi, wheezes - Cardiovascular Cardiovascular exam: Present: RRR, +S1, +S2. Absent: diastolic murmur, gallop, rubs, systolic murmur - GI/Abdominal GI/Abdominal exam: Present: normal bowel sounds, soft, no peritoneal signs. Absent: distended, tenderness - Extremities Exam Extremities exam: Present: warm, radial pulses palpable and symmetrical. Absent : calf tenderness, cyanotic, pedal edema - Neurological Exam Neurological exam: Present: CN II-XII intact, oriented X3, no focal deficits. Absent: pronater drift, facial droop, speech deficit - Skin Skin exam: Present: dry, intact Internal Medicine: Result - Labs CBC & Chem 7: 03/04/17 06:04 03/04/17 06:04 Labs: Short CBC 03/04/17 Range/Units 06:04 WBC 6.3 (4.3-11.1) K/mcL Hgb 12.2 L (12.9-16.9) g/dL Hct 38.3 (37.5-50.1) % Plt Count 268 (140-400) K/mcL [facility] 03/04/17 06:04 Sodium 141 Potassium 4.0 Chloride 112 H Carbon Dioxide 25 BUN 13 Creatinine 0.80 Glucose 91 Calcium 8.7 Consult Discharge Plan - Plan Referrals: NONE,PCP [Primary Care Provider] -
[2017-03-05] MEDS: *HR* Enoxaparin 40 MG/0.4 ML SYRINGE SQ SCH (06:00)
[2017-03-05] MEDS: Aspirin Enteric Coated 81 MG Tablet PO SCH (08:37)
[2017-03-05] MEDS ORDERED: Nicotine 21 MG PATCH.TD24 TD SCH (09:00)
[2017-03-05] MEDS: *HR* LORazepam 2 MG/ML VIAL IVP SCH ×3 (10:16→21:35)
--- NOTE | 2017-03-05 15:55 | Internal Med Progress Note ---
Date of Encounter: 03/05/17 Time of Encounter: 15:53 - Assessment and plan (1) Schizophrenia, catatonic, chronic with acute exacerbation Current Visit: Yes Status: Acute Assessment and plan: Was transferred from [facility] office with altered mental status. Apparently was acutely confused, disoriented in ED. Head CT non-acute. No obvious metabolic or infectious etiology. He was sedated and underwent an LP. He then became lethargic and would not really respond or follow commands after the LP. Evaluated by psychiatry who suspects catatonic schizophrenia and recommended scheduled Ativan TID. Mentation significantly improved on 03/04; he is awake, oriented to self and no seasonal hospital. Still appears somewhat altered however baseline unknown. Unclear if the Ativan is helping or patient is improving to baseline. Continue Ativan, monitor for sedation/lethargy. Avoid Haldol. Use Geodon or Abilify PRN for combativeness/agitation. He will need inpatient psychiatric hospitalization once medically stable. He is pink slipped and cannot leave AMA. Continue one-to-one sitter. (2) DVT prophylaxis Current Visit: Yes Status: Acute Assessment and plan: lovenox - Subjective Interval history: Seen and examined at bedside. Mentation appears improved, alert and oriented to self and place only. Answer some questions appropriately at at times and other times will mumble and speech is nonsensical. He does not answer ROS questions or if he does unable to understand what he is saying. Does not appear to be in distress. Hemodynamically stable. Continue one-to-one sitter - Constitutional Vitals: Temp Pulse Resp BP Pulse Ox 98.7 F 65 16 111/69 94 03/05/17 15:17 03/05/17 15:17 03/05/17 15:17 03/05/17 15:17 03/05/17 15:17 General appearance: Present: cachectic, disheveled, A&O X 2 - Head Head exam: Present: atraumatic, normocephalic - Eye Eye exam: Present: PERRL, conjuntiva pink, sclera anicteric Pupils: Present: PERRL - Neck Neck exam general surgery: Present: supple, trachea midline. Absent: lymphadenopathy - Respiratory Respiratory exam: Present: CTAB. Absent: accessory muscle use, rales, rhonchi, wheezes - Cardiovascular Cardiovascular exam: Present: RRR, +S1, +S2. Absent: diastolic murmur, gallop, rubs, systolic murmur - GI/Abdominal GI/Abdominal exam: Present: normal bowel sounds, soft, no peritoneal signs. Absent: distended, tenderness - Extremities Exam Extremities exam: Present: warm, radial pulses palpable and symmetrical. Absent : calf tenderness, cyanotic, pedal edema - Neurological Exam Neurological exam: Present: CN II-XII intact, oriented X3, no focal deficits. Absent: pronater drift, facial droop, speech deficit - Skin Skin exam: Present: dry, intact Internal Medicine: Result - Labs CBC & Chem 7: 03/04/17 06:04 03/04/17 06:04 Consult Discharge Plan - Plan Referrals: NONE,PCP [Primary Care Provider] -
[2017-03-06] MEDS: *HR* Enoxaparin 40 MG/0.4 ML SYRINGE SQ SCH (05:19)
[2017-03-06 06:14] LABS: Hematocrit 37.6 % (37.5-50.1); Hemoglobin 11.9 g/dL (12.9-16.9); Mean Corpuscular HGB Conc 31.6 g/dL (31.6-35.5); Mean Corpuscular Hemoglobin 32.4 pg (28.0-33.3); Mean Corpuscular Volume 102.5 fL (83.0-100.0); Mean Platelet Volume 9.5 fL (9.4-12.4); Platelet Count 279 K/mcL (140-400); Red Blood Count 3.67 M/mcL (4.19-5.50); Red Cell Distribution Width 12.7 % (11.5-14.5)
[2017-03-06 06:28] LABS: BUN/Creatinine Ratio 17 (6-26); Blood Urea Nitrogen 14 mg/dL (8-26); Calcium 8.8 mg/dL (8.6-10.8); Carbon Dioxide 27 mEq/L (19-29); Chloride 110 mEq/L (98-109); Glucose 98 mg/dL (70-99); Osmolality,Calculated 294 (280-300); Potassium 4.4 mEq/L (3.5-4.5); Sodium 142 mEq/L (136-145); eGFR For African Americans > 60 (> 60); eGFR For Non-African Americans > 60 (> 60)
[2017-03-06] MEDS: *HR* LORazepam 2 MG/ML VIAL IVP SCH (09:03)
[2017-03-06] MEDS: Aspirin Enteric Coated 81 MG Tablet PO SCH (09:03)
--- NOTE | 2017-03-06 13:02 | Psychiatry Progress Note ---
Date of Encounter: 03/06/17 Time of Encounter: 12:50 Subjective Interval history: Carlos is seen today for follow-up of his schizophrenia and catatonia. Patient is starting to be more verbal with staff but remains disorganized in his thinking. He is unable to carry on a conversation about the reasons for his admission to the hospital. He denies suicidal ideation. He denies auditory or visual hallucinations. He does have very delayed speech which may be thought blocking. Previous notes reviewed. We will move forward with admission to for psychiatric stabilization. Review of Systems ROS limited: due to patient condition Psychiatric: Reports: anxiety, difficulty concentrating. Denies: suicidal ideation Objective: Exam Patient orientation: Yes Person, Yes Place Level of alertness: Sedated Patient appearance: Unkempt, Disheveled, Malodorous Behavior: guarded Psychomotor activity: Slowed Eye contact: Diverts Contact Mood description: Euthymic/stable Affect description: flat Speech pattern: Slowed, Delayed, Disorganized Speech volume: Soft/Quiet Thought process: Thought Blocking Thought content: No Suicidal ideation, No Homicidal ideation Perceptual disturbances: No Auditory hallucinations, No Visual hallucinations Judgment: Poor Insight: None Results - Vital Signs Vital Signs: Temp Pulse Resp BP Pulse Ox 98.0 F 59 16 85/49 97 03/06/17 11:58 03/06/17 11:58 03/06/17 11:58 03/06/17 11:58 03/06/17 11:58 - Labs Labs: Laboratory Results - last 24 hr 03/06/17 03/06/17 05:57 05:57 WBC 7.8 RBC 3.67 L Hgb 11.9 L Hct 37.6 MCV 102.5 H MCH 32.4 MCHC 31.6 RDW 12.7 Plt Count 279 MPV 9.5 Sodium 142 Potassium 4.4 Chloride 110 H Carbon Dioxide 27 BUN 14 Creatinine 0.84 Est GFR ( Amer) > 60 Est GFR (Non-Af Amer) > 60 BUN/Creatinine Ratio 17 Glucose 98 Calculated Osmolality 294 Calcium 8.8 Assessment and Plan (1) Schizophrenia, catatonic, chronic with acute exacerbation Current visit: Yes Status: Acute Plan: Continue hospitalization Additional Plan: Okay for transfer to when medically stable. Continue current meds for now. Continue one-to-one observation. Consult Discharge Plan - Plan Referrals: NONE,PCP [Primary Care Provider] -
--- NOTE | 2017-03-06 15:11 | Discharge Summary ---
Date of Encounter: 03/06/17 Time of Encounter: 15:08 - Discharge Diagnosis (1) Schizophrenia, catatonic, chronic with acute exacerbation Priority: Primary Status: Acute Comments: Was transferred from [facility] with altered mental status. Apparently was acutely confused, disoriented in ED. Head CT non-acute. No obvious metabolic or infectious etiology. He was sedated and underwent an LP. He then became lethargic and would not really respond or follow commands after the LP. Evaluated by psychiatry who suspects catatonic schizophrenia and recommended scheduled Ativan TID. Mentation significantly improved with ativan. He is now awake, oriented to self and knows that he is in the hospital. He is medically stable and ready for discharge to inpatient psychiatry once bed available. - Discharge Medications Home Medications: Unable To Obtain [Unable to Obtain] 03/03/17 [History] Allergies/Adverse Reactions: 3 Allergy/AdvReac Type Severity Reaction Status Date / Time No Known Allergies Allergy Verified 03/02/17 23:47 Date of admission: 03/03/17 05:04 Primary care physician: PCP NONE Discharging clinician: Leia Gonzalez Anticipated date of discharge: 03/06/17 - Patient Status Disposition: Transfer Psychiatric Hosp Condition: Good Functional capacity at discharge: independent ambulation Overall status at discharge: patient is not back to baseline - Discharge Instructions Follow Up With: NONE,PCP [Primary Care Provider] - - Diet and Activity Activity: increase activity as tolerated Diet: advance to your usual diet Interval History: Seen and examined at bedside; he does not communicate and exam today. He will moan out and spontaneously moved but does not appear to be purposeful does not follow commands. Discussed with Dr. Landry in we will plan for discharge to inpatient psych once bed available. Continue one-to-one sitter Hospital course: See assessment and plan for hospital course - Time Spent with Patient Total time spent providing and/or coordinating discharge services: - Constitutional Vitals: Temp Pulse Resp BP Pulse Ox 98.0 F 59 16 85/49 97 03/06/17 11:58 03/06/17 11:58 03/06/17 11:58 03/06/17 11:58 03/06/17 11:58 General appearance: Present: cachectic, disheveled, A&O X 2 - Head Head exam: Present: atraumatic, normocephalic - Eye Eye exam: Present: PERRL, conjuntiva pink, sclera anicteric Pupils: Present: PERRL - Neck Neck exam general surgery: Present: supple, trachea midline. Absent: lymphadenopathy - Respiratory Respiratory exam: Present: CTAB. Absent: accessory muscle use, rales, rhonchi, wheezes - Cardiovascular Cardiovascular exam: Present: RRR, +S1, +S2. Absent: diastolic murmur, gallop, rubs, systolic murmur - GI/Abdominal GI/Abdominal exam: Present: normal bowel sounds, soft, no peritoneal signs. Absent: distended, tenderness - Extremities Exam Extremities exam: Present: warm, radial pulses palpable and symmetrical. Absent : calf tenderness, cyanotic, pedal edema - Neurological Exam Neurological exam: Present: CN II-XII intact, oriented X3, no focal deficits. Absent: pronater drift, facial droop, speech deficit - Skin Skin exam: Present: dry, intact
[2017-03-06 15:30] VITALS: BP 102/61
== END 2017-03-06 16:09 ==
LOC: EMEROO 22:52 → 3BNU 22:52
PROVIDERS: ADMIT Family Medicine; ATTEND Registered Nurse

== ENCOUNTER 2017-03-06 16:27 | Inpatient (IN) ==
[2017-03-06] MEDS ORDERED: *HR* LORazepam 2 MG/ML VIAL IM PRN (18:11)
[2017-03-06] MEDS ORDERED: MOM Conc 10 ML UD.LIQ PO PRN (18:11)
[2017-03-06] MEDS ORDERED: Haloperidol Lactate 5 MG/ML VIAL IM PRN (18:11)
[2017-03-06] MEDS ORDERED: Mag Hydrox/Al Hydrox/Simeth 30 ML UDC PO PRN (18:11)
[2017-03-06] MEDS ORDERED: hydrOXYzine pamoate 25 MG CAPSULE PO PRN (18:11)
[2017-03-06] MEDS ORDERED: Ibuprofen 400 MG TABLET PO PRN (18:11)
[2017-03-06] MEDS ORDERED: *HR* LORazepam 1 MG TABLET PO PRN (18:11)
[2017-03-06] MEDS: Ziprasidone 20 MG CAPSULE PO SCH (20:37)
[2017-03-06] MEDS: *HR* LORazepam 1 MG TABLET PO SCH (20:37)
[2017-03-06] MEDS: traZODone 50 MG TABLET PO PRN (20:38)
[2017-03-07] MEDS: Aspirin 81 MG TAB.CHEW PO SCH (12:48)
[2017-03-07] MEDS: Ziprasidone 20 MG CAPSULE PO SCH ×2 (12:48→21:01)
[2017-03-07] MEDS: *HR* LORazepam 1 MG TABLET PO SCH ×4 (12:48→21:01)
--- NOTE | 2017-03-07 12:52 | Psychiatry History & Physical ---
Date of Encounter: 03/07/17 Time of Encounter: 12:50 History of Present Illness Patient Stated Chief Complaint: "I had a headache." Medicare Admission Attestation: For traditional Medicare patients the provided hospital inpatient services are reasonable and necessary and in the case of services not specified as inpatient -only under 42 CFR 419.22 (n), that they are appropriately provided as inpatient services in accordance 42 CFR 412.3. For Critical Access Hospital the patient may reasonably be expected to be discharged or transferred to a hospital within 96 hours after admission to the Critical Access Hospital. Admitted From: Intrahospital Transfer History of Present Illness: Mr. Murray is a 47 year old male with a history of schizophrenia based on EMR presented to the hospital with headache and altered mental status. Patient was medically stabilized and checked for various possible causes of altered mental status. Psychiatry became involved and he was diagnosed with schizophrenia and possible catatonia. Patient did respond to Ativan which was started to improve the catatonia. Once medically stabilized patient was transferred to for further stabilization. Today patient is much more conversant but remains paranoid and guarded. He states that the headache brought into the hospital but does not remember much else about medications that he is taking. He is very malodorous and does not appear to be caring for himself well. Patient was encouraged to shower earlier but stood next to the shower did not get his hair wet. He has some delayed response which might be thought blocking but it is difficult to say. He states he does not have family. He denies a previous history of schizophrenia. He denies previous psychiatric hospitalizations. Otherwise he is unable to give me much information regarding his physical and mental health issues. Past Med Surg Social Fam HX - Past Medical History Medical history: no medical history - Past Psychiatric History Past psychiatric history details: He denies previous diagnosis of schizophrenia but Family psychiatric history: Unknown Family History of Suicide: Unknown - Past Surgical History Surgical History: no surgical history - Social History Smoking Status: Current some day smoker Smokeless Tobacco Status: No Alcohol use: none Drug use: none Medications & Allergies Unable To Obtain [Unable to Obtain] 03/03/17 [History] 3 Allergy/AdvReac Type Severity Reaction Status Date / Time No Known Allergies Allergy Verified 03/02/17 23:47 Review of Systems ROS limited: due to patient condition Psychiatric: Denies: depression, anxiety, abnormal sleep pattern, suicidal ideation, auditory hallucinations, visual hallucinations Mental Status Exam Patient orientation: Yes Person, Yes Place Level of alertness: Alert Patient appearance: Disheveled, Malodorous Behavior: guarded Psychomotor activity: Normal Eye contact: Minimal Contact Mood description: Euthymic/stable Affect description: flat Speech pattern: Rambling, Monotone, Mumbled Speech volume: Soft/Quiet Thought process: Circumstantial Thought content: No Suicidal ideation, No Homicidal ideation Perceptual disturbances: No Auditory hallucinations, No Visual hallucinations Attention span: Capable of Focused Attention Memory description: Immediate Intact, Recent Impaired, Remote Impaired Patient reliability: Not Reliable Historian Intelligence estimate: Average Judgment: Poor Insight: None Exam - HEENT Head exam IM: Present: atraumatic Eye exam IM: Present: EOMI - Neurological Neurological exam IM: Present: CN II-XII intact Results - Vital Signs Vital signs: Temp Pulse Resp BP 97 F L 61 16 89/55 03/07/17 09:00 03/07/17 09:00 03/07/17 09:00 03/07/17 09:00 Assessment and Plan (1) Schizophrenia, catatonic, chronic with acute exacerbation Current visit: No Status: Acute Plan: Admit inpatient for safety and stabilization, Close observation, Suicide Precautions per unit protocol, Encourage participation in unit milieu, Group Therapy, Monitor sleep, Monitor appetite Additional Plan: Patient seems to be responding well to psychiatric medications. We will start to decrease Ativan as the dosage is high and patient's blood pressure is low. Patient has no actual address that is correct in the computer. He has been to Hospital several times patient reports for headache but it is unclear if they were psychiatric stabilization's or not. Continue Geodon for now and monitor for improvement. Probate paperwork filled out as patient is unable to care for himself at this time. Risks, benefits, side effects, alternatives discussed w/pt: Yes Patient agreeable to treatment: Yes Estimated Length of Stay (Days): 4
[2017-03-08] MEDS: *HR* LORazepam 1 MG TABLET PO SCH ×3 (09:17→20:52)
[2017-03-08] MEDS: Ziprasidone 20 MG CAPSULE PO SCH ×2 (09:17→20:51)
[2017-03-08] MEDS: Aspirin 81 MG TAB.CHEW PO SCH (09:18)
--- NOTE | 2017-03-08 13:35 | Psychiatry Progress Note ---
Date of Encounter: 03/08/17 Time of Encounter: 13:00 Subjective Interval history: Carlos today for follow-up. He reports that he does not know what his previous diagnosis is. "Why do you need to know this." He becomes somewhat agitated during our discussion. Patient is unable to answer questions completely. For staff Carlos has been confused and disorganized. He remains malodorous and disheveled. Review of Systems ROS unobtainable: due to patient condition Psychiatric: Denies: depression, anxiety, abnormal sleep pattern, suicidal ideation, auditory hallucinations, visual hallucinations Objective: Exam Patient orientation: Yes Person, No Time, No Place Level of alertness: Alert Patient appearance: Disheveled, Malodorous Behavior: restless, guarded, suspicious Eye contact: Minimal Contact Mood description: Euthymic/stable Affect description: flat Speech pattern: Garbled, Mumbled Speech volume: Soft/Quiet Thought process: Disorganized Thought content: No Suicidal ideation, No Homicidal ideation Perceptual disturbances: No Auditory hallucinations, No Visual hallucinations Judgment: Limited Insight: Minimal Results - Vital Signs Vital Signs: Temp Pulse Resp BP 98.4 F 56 18 96/47 03/08/17 09:00 03/08/17 09:00 03/08/17 09:00 03/08/17 09:00 Assessment and Plan (1) Schizophrenia, catatonic, chronic with acute exacerbation Current visit: No Status: Acute Plan: Continue hospitalization, Close observation, Suicide Precautions per unit protocol, Encourage participation in unit milieu, Group Therapy, Monitor sleep, Monitor appetite Additional Plan: We will continue to taper Ativan and monitor. Increase Geodon 40 mg by mouth twice a day. Only previous hospitalization records for more information and to help us discharge planning. Risks, benefits, side effects, alternatives discussed w/pt: Yes Patient agreeable to treatment: Yes Consult Discharge Plan - Plan Referrals: NONE,PCP [Primary Care Provider] -
[2017-03-09] MEDS: Ziprasidone 20 MG CAPSULE PO SCH ×2 (08:59→20:56)
[2017-03-09] MEDS: *HR* LORazepam 1 MG TABLET PO SCH ×2 (08:59→20:58)
[2017-03-09] MEDS: Aspirin 81 MG TAB.CHEW PO SCH (09:00)
--- NOTE | 2017-03-09 10:12 | Psychiatry Progress Note ---
Date of Encounter: 03/09/17 Time of Encounter: 09:20 Subjective Interval history: Carlos is seen today for follow-up. Remains confused at times. He is unable to give any major history about himself. Hospital records from [place] or [facility] use here. He remains to have poor hygiene and occasionally disorganized thought content. He is more talkative now than on his arrival to the unit. Review of Systems Psychiatric: Denies: depression, anxiety, abnormal sleep pattern, suicidal ideation, auditory hallucinations, visual hallucinations Objective: Exam Patient orientation: Yes Person Level of alertness: Alert Patient appearance: Unkempt, Malodorous Behavior: guarded Psychomotor activity: Slowed Eye contact: Minimal Contact Mood description: Euthymic/stable Affect description: constricted Speech pattern: Rambling, Mumbled Speech volume: Soft/Quiet Thought process: Disorganized Thought content: No Suicidal ideation, No Homicidal ideation Perceptual disturbances: No Auditory hallucinations, No Visual hallucinations Judgment: Limited Insight: Minimal Results - Vital Signs Vital Signs: Temp Pulse Resp BP 98.9 F 67 18 116/66 03/09/17 09:00 03/09/17 09:00 03/09/17 09:00 03/09/17 09:00 Assessment and Plan (1) Schizophrenia, catatonic, chronic with acute exacerbation Current visit: No Status: Acute Plan: Continue hospitalization Additional Plan: We will continue Geodon and decrease Ativan. Patient showing some minimal improvement but remains Poor hygiene. We will encourage appropriate ADLs and group attendance. Risks, benefits, side effects, alternatives discussed w/pt: Yes Patient agreeable to treatment: Yes Consult Discharge Plan - Plan Referrals: NONE,PCP [Primary Care Provider] -
[2017-03-10] MEDS: Aspirin 81 MG TAB.CHEW PO SCH (08:45)
[2017-03-10] MEDS: *HR* LORazepam 1 MG TABLET PO SCH (08:45)
[2017-03-10] MEDS: Ziprasidone 20 MG CAPSULE PO SCH ×2 (08:46→20:24)
--- NOTE | 2017-03-10 12:04 | Psychiatry Progress Note ---
Date of Encounter: 03/10/17 Time of Encounter: 08:40 Subjective Interval history: Carlos remains confused at times pleasant. He is seen today for follow-up. He is able to ask for help but is still not able to care for his regular hygiene. He interacts occasionally with peers and staff. Patient did report to staff that he has family in [place]. We will encourage patient to help us contact family. Review of Systems Psychiatric: Denies: depression, anxiety, abnormal sleep pattern, suicidal ideation, auditory hallucinations, visual hallucinations Objective: Exam Patient orientation: Yes Person Level of alertness: Alert Patient appearance: Unkempt, Disheveled Behavior: calm, cooperative Psychomotor activity: Slowed Eye contact: Diverts Contact Mood description: Euthymic/stable Affect description: blunted Speech pattern: Rambling, Mumbled Speech volume: Soft/Quiet Thought process: [place] Thought content: No Suicidal ideation, No Homicidal ideation Perceptual disturbances: No Auditory hallucinations, No Visual hallucinations Judgment: Limited Insight: Minimal Results - Vital Signs Vital Signs: Temp Pulse Resp BP 99.3 F 57 16 102/50 03/10/17 09:00 03/10/17 09:00 03/10/17 09:00 03/10/17 09:00 Assessment and Plan (1) Schizophrenia, catatonic, chronic with acute exacerbation Current visit: No Status: Acute Plan: Continue hospitalization, Close observation, Suicide Precautions per unit protocol, Encourage participation in unit milieu, Group Therapy, Monitor sleep, Monitor appetite Additional Plan: Continue Geodon. Continued decrease of Ativan. We will attempt to contact patient's family. Continue to encourage appropriate ADLs. Risks, benefits, side effects, alternatives discussed w/pt: Yes Patient agreeable to treatment: Yes Consult Discharge Plan - Plan Referrals: NONE,PCP [Primary Care Provider] -
[2017-03-10] MEDS: traZODone 50 MG TABLET PO PRN (20:24)
[2017-03-11] MEDS: Ziprasidone 20 MG CAPSULE PO SCH ×2 (09:41→20:27)
[2017-03-11] MEDS: Aspirin 81 MG TAB.CHEW PO SCH (09:41)
--- NOTE | 2017-03-11 13:34 | Psychiatry Progress Note ---
Date of Encounter: 03/11/17 Time of Encounter: 13:20 Subjective Interval history: Carlos is seen today for follow-up. He is now showering on his own. Reporting some odd comments and delusional thinking by is able to take care of himself better today. He is minimally interacting with peers and staff. He shaved his acosta. He reports he is sleeping well. Appetite has been good. Review of Systems Psychiatric: Reports: other (Delusions). Denies: depression, anxiety, abnormal sleep pattern, suicidal ideation, auditory hallucinations, visual hallucinations Objective: Exam Patient orientation: Yes Person, Yes Place Level of alertness: Alert Patient appearance: Unkempt Behavior: cooperative, guarded Psychomotor activity: Normal Eye contact: Minimal Contact Mood description: Euthymic/stable Affect description: flat Speech pattern: Rambling, Mumbled Speech volume: Soft/Quiet Thought process: [place] Thought content: No Suicidal ideation, No Homicidal ideation, Yes Overt delusions Perceptual disturbances: No Auditory hallucinations, No Visual hallucinations Judgment: Limited Insight: Minimal Results - Vital Signs Vital Signs: Temp Pulse Resp BP 99 F 68 16 107/67 03/11/17 09:00 03/11/17 09:00 03/11/17 09:00 03/11/17 09:00 Assessment and Plan (1) Schizophrenia, catatonic, chronic with acute exacerbation Current visit: No Status: Acute Plan: Continue hospitalization, Close observation, Suicide Precautions per unit protocol, Encourage participation in unit milieu, Group Therapy, Monitor sleep, Monitor appetite Additional Plan: Discontinue Ativan. Continue Geodon. Risks, benefits, side effects, alternatives discussed w/pt: Yes Patient agreeable to treatment: Yes Consult Discharge Plan - Plan Referrals: NONE,PCP [Primary Care Provider] -
[2017-03-11] MEDS: traZODone 50 MG TABLET PO PRN (20:27)
[2017-03-12] MEDS ORDERED: *HR* LORazepam 1 MG TABLET PO SCH (09:00)
[2017-03-12] MEDS: Ziprasidone 20 MG CAPSULE PO SCH ×2 (10:07→20:14)
--- NOTE | 2017-03-12 10:33 | Psychiatry Progress Note ---
Date of Encounter: 03/12/17 Time of Encounter: 10:00 Subjective Interval history: Carlos is seen today for follow-up. The reports he feels "okay." He is withdrawn to his room today. Not interested in making conversation with this provider. The patient has been calm and cooperative with staff. Occasional voicing delusional content. He denies auditory or visual hallucinations Review of Systems Psychiatric: Reports: other (Delusions). Denies: depression, anxiety, abnormal sleep pattern, suicidal ideation, auditory hallucinations, visual hallucinations Objective: Exam Patient orientation: Yes Person, Yes Place Level of alertness: Alert Patient appearance: Unkempt, Disheveled Behavior: calm, cooperative Psychomotor activity: Slowed Eye contact: Diverts Contact Mood description: Euthymic/stable Affect description: blunted Speech pattern: Slowed, Mumbled Speech volume: Soft/Quiet Thought process: [place] Thought content: No Suicidal ideation, No Homicidal ideation Perceptual disturbances: No Auditory hallucinations, No Visual hallucinations Judgment: Limited Insight: Minimal Results - Vital Signs Vital Signs: Temp Pulse Resp BP 97.8 F 66 18 124/80 03/12/17 09:00 03/12/17 09:00 03/12/17 09:00 03/12/17 09:00 Assessment and Plan (1) Schizophrenia, catatonic, chronic with acute exacerbation Current visit: No Status: Acute Plan: Continue hospitalization, Close observation, Suicide Precautions per unit protocol, Encourage participation in unit milieu, Group Therapy, Monitor sleep, Monitor appetite Additional Plan: Continue to monitor. Patient attending more to his ADLs than on arrival. Mental unable to locate any history about previous psychiatric episodes. We will likely need to discharged to homeless group home and make sure patient is able to function in that environment prior to discharge. Continue Geodon. Risks, benefits, side effects, alternatives discussed w/pt: Yes Patient agreeable to treatment: Yes Consult Discharge Plan - Plan Referrals: NONE,PCP [Primary Care Provider] -
[2017-03-12] MEDS: Aspirin 81 MG TAB.CHEW PO SCH (11:31)
[2017-03-13] MEDS: Aspirin 81 MG TAB.CHEW PO SCH (09:56)
[2017-03-13] MEDS: Ziprasidone 20 MG CAPSULE PO SCH ×2 (09:56→21:11)
--- NOTE | 2017-03-13 12:52 | Psychiatry Progress Note ---
Date of Encounter: 03/13/17 Time of Encounter: 12:49 Subjective Interval history: Pleasantly psychotic. According to staff he is confused and disorganized but not a behavior problem. Denies SI/HI/AH/VH. [place] Staff have been trying to locate info on him but nothing has turned up. Likely transient. Even has papers in his belongings that say [facility]. Current plan is to discharge him to a homeless fpc here once he is stable enough to handle this kind of living environment. Anticipated discharge mid week. Review of Systems Constitutional: Denies: fever, chills, weakness, weight change Eyes: Denies: eye pain, vision change Ears, Nose, Throat: Denies: ear pain, throat pain, dental pain, hearing loss, congestion Cardiovascular: Denies: chest pain, palpitations, dyspnea on exertion Respiratory: Denies: cough, dyspnea, wheezes Gastrointestinal: Denies: abdominal pain, nausea, vomiting, diarrhea, constipation Musculoskeletal: Denies: joint swelling, joint pain Neurological: Denies: headache, weakness, numbness, memory loss Psychiatric: Reports: other (Delusions). Denies: depression, anxiety, abnormal sleep pattern, suicidal ideation, auditory hallucinations, visual hallucinations Objective: Exam Patient orientation: Yes Other Level of alertness: Alert Patient appearance: Unkempt, Disheveled Behavior: calm Psychomotor activity: Normal Eye contact: Maintains Eye Contact Mood description: Euthymic/stable Affect description: congruent with mood Speech pattern: Normal rate Speech volume: Normal Thought process: Goal Oriented Thought content: No Suicidal ideation, No Homicidal ideation Perceptual disturbances: Yes Reacting to internal stimuli Judgment: Limited Insight: Minimal Results - Vital Signs Vital Signs: Temp Pulse Resp BP 98.7 F 75 16 99/59 03/12/17 19:36 03/13/17 09:00 03/13/17 09:00 03/13/17 09:00 Assessment and Plan (1) Schizophrenia, catatonic, chronic with acute exacerbation Current visit: No Status: Acute Plan: Continue hospitalization, Close observation, Suicide Precautions per unit protocol, Encourage participation in unit milieu, Group Therapy, Monitor sleep, Monitor appetite Risks, benefits, side effects, alternatives discussed w/pt: Yes Patient agreeable to treatment: Yes Consult Discharge Plan - Plan Referrals: NONE,PCP [Primary Care Provider] -
[2017-03-14] MEDS: Ziprasidone 20 MG CAPSULE PO SCH ×2 (08:21→20:21)
[2017-03-14] MEDS: Aspirin 81 MG TAB.CHEW PO SCH (08:22)
--- NOTE | 2017-03-14 13:29 | Psychiatry Progress Note ---
Date of Encounter: 03/14/17 Time of Encounter: 13:26 Subjective Interval history: Still delusional but pleasantly so. Staff have not been able to find any information on him. He is confused at his baseline so chances are good no information will turn up and he will need to be discharged to a assisted. He is perfectly fine and excited by this. Wants to leave. Says he is used to the street life. Says he has plenty of warm clothes. Still not attending to his hygiene. Staff encourage him to shower but tending to his ADLs is not something he does on a regular basis. Despite poor self care he has good survival skills. Denies SI/HI/AH/VH. Review of Systems Constitutional: Denies: fever, chills, weakness, weight change Eyes: Denies: eye pain, vision change Ears, Nose, Throat: Denies: ear pain, throat pain, dental pain, hearing loss, congestion Cardiovascular: Denies: chest pain, palpitations, dyspnea on exertion Respiratory: Denies: cough, dyspnea, wheezes Gastrointestinal: Denies: abdominal pain, nausea, vomiting, diarrhea, constipation Musculoskeletal: Denies: joint swelling, joint pain Neurological: Denies: headache, weakness, numbness, memory loss Psychiatric: Reports: other (Delusions). Denies: depression, anxiety, abnormal sleep pattern, suicidal ideation, auditory hallucinations, visual hallucinations Objective: Exam Patient orientation: Yes Other Level of alertness: Alert Patient appearance: Unkempt, Disheveled Behavior: calm, cooperative Psychomotor activity: Normal Eye contact: Maintains Eye Contact Mood description: Euthymic/stable Affect description: congruent with mood Speech pattern: Normal rate, Normal rhythm, Normal tone Speech volume: Normal Thought process: Goal Oriented Thought content: No Suicidal ideation, No Homicidal ideation, Yes Overt delusions Perceptual disturbances: No Auditory hallucinations, No Visual hallucinations Judgment: Limited Insight: Minimal Results - Vital Signs Vital Signs: Temp Pulse Resp BP 98.0 F 51 18 135/86 03/14/17 08:25 03/14/17 08:25 03/14/17 08:25 03/14/17 08:25 Assessment and Plan (1) Schizophrenia, catatonic, chronic with acute exacerbation Current visit: No Status: Acute Plan: Continue hospitalization, Close observation, Suicide Precautions per unit protocol, Encourage participation in unit milieu, Group Therapy, Monitor sleep, Monitor appetite Risks, benefits, side effects, alternatives discussed w/pt: Yes Patient agreeable to treatment: Yes Consult Discharge Plan - Plan Referrals: NONE,PCP [Primary Care Provider] -
[2017-03-15] MEDS: Ziprasidone 20 MG CAPSULE PO SCH (09:06)
[2017-03-15] MEDS: Aspirin 81 MG TAB.CHEW PO SCH (09:07)
[2017-03-15 09:34] VITALS: BP 120/86
--- NOTE | 2017-03-15 13:02 | Discharge Summary ---
Date of Encounter: 03/15/17 Time of Encounter: 13:00 Diagnosis - Discharge Diagnosis (1) Schizophrenia, catatonic, chronic with acute exacerbation Status: Acute Medications - Discharge Medications Prescriptions: Ziprasidone [Geodon] 40 mg PO BID #28 capsule Aspirin 81 mg PO DAILY tab.chew 03/15/17 [Rx] Ziprasidone [Geodon] 40 mg PO BID #28 capsule 03/15/17 [Rx] 3 Allergy/AdvReac Type Severity Reaction Status Date / Time No Known Allergies Allergy Verified 03/02/17 23:47 Provider Date of admission: 03/06/17 16:27 Primary care physician: PCP NONE Discharging clinician: Paula Jean Assessment and Plan - Patient/Caregiver Discharge Instructions Activity: resume usual activities as tolerated Diet: regular diet - Follow up Plan Follow up with: NONE,PCP [Primary Care Provider] - Functional capacity at discharge: independent ambulation Overall status at discharge: Stable Disposition: Transfer Other Hospital Course Hospital course: Mr. Murray is a 47 year old male who was admitted secondary to psychosis. Client was started on Geodon but remained pleasantly confused throughout his admission. Staff were unsure of his name or where he was from. Finally able to track down some records from [place]. Client had been hospitalized there and diagnosed with Schizophrenia. Discharged to a [facility]. No living relatives. Never . No supports. Records were two years old. Nothing current. Client states he has lived on the streets since 1980. Likes the lifestyle. Does not qualify for services here since he is not from [place] and has no ID but client repeatedly stated he was not interested in services. Doesn 't intend to take medications after discharge. Has not presented as a danger to self or others. Denies SI/HI. He is vulnerable based on his psychosis but he does not qualify for nor does he want services. Will plan to discharge him to a [facility] and arrange transportation. [facility] that does outreach and will come in and link client if he is amenable. - Time Spent with Patient Total time spent providing and/or coordinating discharge services: Quality - Multiple Antipsychotics Patient discharged on 2 or more antipsychotic medications: No Procedures - Procedures Procedures: Medication Management, Crisis Stabilization, Supportive Therapy, Group Therapy Mental Status Exam - Mental Status Exam Patient orientation: Yes Other Level of alertness: Alert Patient appearance: Unkempt, Disheveled Behavior: calm, cooperative Psychomotor activity: Normal Eye contact: Maintains Eye Contact Mood description: Euthymic/stable Affect description: congruent with mood, full range Speech pattern: Normal rate, Normal rhythm, Normal tone Speech Volume: Normal Thought process: Goal Oriented Thought Content: No Suicidal ideation, No Homicidal ideation, Yes Grandiose delusion Perceptual Disturbances: No Auditory hallucinations, No Visual hallucinations Judgment: Limited Insight: Minimal
== END 2017-03-15 16:05 | disposition other institution (70) | DRG 885 ==
LOC: 1ANU 16:27
PROVIDERS: ADMIT Student in an Organized Health Care Education/Training Program; ATTEND Student in an Organized Health Care Education/Training Program

== ENCOUNTER 2019-02-18 02:30 | Observation (INO) ==
[2019-02-18 04:17] LABS: Basophils % 0.4 %; Eosinophils # 0.1 K/mcL (0.0-0.6); Eosinophils % 0.6 %; Hematocrit 38.1 % (37.5-50.1); Hemoglobin 12.4 g/dL (12.9-16.9); Immature Granulocytes % 0.2 % (0-4); Lymphocytes # 1.1 K/mcL (0.6-4.6); Lymphocytes % 11.8 %; Mean Corpuscular HGB Conc 32.5 g/dL (31.6-35.5); Mean Corpuscular Hemoglobin 33.1 pg (28.0-33.3); Mean Corpuscular Volume 101.6 fL (83.0-100.0); Mean Platelet Volume 9.2 fL (9.4-12.4); Monocytes # 0.7 K/mcL (0.0-1.3); Monocytes % 7.3 %; Neutrophils # 7.6 K/mcL (1.6-8.9); Platelet Count 340 K/mcL (140-400); Red Blood Count 3.75 M/mcL (4.19-5.50); Red Cell Distribution Width 13.2 % (11.5-14.5); Segmented Neutrophils % 79.7 %; White Blood Count 9.5 K/mcL (4.3-11.1)
[2019-02-18 04:19] LABS: Bilirubin,Urine Negative (Negative); Blood,Urine Negative (Negative); Clarity,Urine Clear (Clear); Color,Urine Yellow (Yellow); Glucose,Urine (UA) Normal (Normal); Ketones,Urine Negative (Negative); Leukocyte Esterase,Urine Negative (Negative); Nitrite,Urine Negative (Negative); Protein,Urine Negative (Neg-Trace); Specific Gravity,Urine 1.024 (1.010-1.025); Urobilinogen,Urine Normal (Normal)
[2019-02-18 04:30] LABS: Amphetamine Screen,Urine Negative ng/mL (Cutoff=1000); Barbiturate Screen,Urine Negative ng/mL (Cutoff=200); Benzodiazepines Screen,Urine Negative ng/mL (Cutoff=200); Cannabinoid Screen,Urine Negative ng/mL (Cutoff = 50); Cocaine Screen,Urine Negative ng/mL (Cutoff= 300); Opiate Screen,Urine Negative ng/mL (Cutoff=300); Phencyclidine Screen,Urine Negative ng/mL (Cutoff=25)
[2019-02-18 04:49] LABS: Alanine Aminotransferase 23 Units/L (7-52); Albumin 3.7 g/dL (3.5-5.7); Albumin/Globulin Ratio 1.6 (1.1-2.2); Alkaline Phosphatase 62 Units/L (34-104); Aspartate Amino Transferase 25 Units/L (13-39); BUN/Creatinine Ratio 16 (6-26); Bilirubin,Indirect 0.3 mg/dL (0.0-1.0); Bilirubin,Total 0.3 mg/dL (0.3-1.0); Blood Urea Nitrogen 16 mg/dL (8-23); Calcium 8.7 mg/dL (8.6-10.3); Carbon Dioxide 26 mEq/L (23-29); Chloride 106 mEq/L (98-107); Ethanol < 10 mg/dL (Less than 10); Globulin 2.3 g/dL (2.4-3.5); Glucose 96 mg/dL (70-105); Osmolality,Calculated 289 (280-300); Sodium 139 mEq/L (136-145); Troponin I < 0.03 ng/mL (< 0.04); eGFR For African Americans > 60 (> 60); eGFR For Non-African Americans > 60 (> 60)
[2019-02-18 04:51] LABS: Thyroid Stimulating Hormone 1.855 mcIU/mL (0.340-5.600)
[2019-02-18] MEDS ORDERED: Naloxone 0.4 MG/ML INJ IVP PRN (10:49)
[2019-02-18] MEDS ORDERED: Acetaminophen 325 MG TABLET PO PRN (10:49)
[2019-02-18] MEDS ORDERED: Haloperidol Lactate 5 MG/ML VIAL IVP PRN (10:51)
[2019-02-18] MEDS: 0.9 % Sodium Chloride 1,000 ML IVC SCH (13:01)
[2019-02-19] MEDS: 0.9 % Sodium Chloride 1,000 ML IVC SCH (01:09)
[2019-02-19 06:52] LABS: Basophils % 0.5 %; Eosinophils # 0.1 K/mcL (0.0-0.6); Eosinophils % 1.2 %; Hematocrit 38.3 % (37.5-50.1); Hemoglobin 12.2 g/dL (12.9-16.9); Immature Granulocytes % 0.1 % (0-4); Lymphocytes # 1.4 K/mcL (0.6-4.6); Lymphocytes % 19.2 %; Mean Corpuscular HGB Conc 31.9 g/dL (31.6-35.5); Mean Corpuscular Hemoglobin 32.8 pg (28.0-33.3); Mean Platelet Volume 8.8 fL (9.4-12.4); Monocytes # 0.6 K/mcL (0.0-1.3); Monocytes % 7.8 %; Neutrophils # 5.3 K/mcL (1.6-8.9); Platelet Count 295 K/mcL (140-400); Red Blood Count 3.72 M/mcL (4.19-5.50); Red Cell Distribution Width 13.1 % (11.5-14.5); Segmented Neutrophils % 71.2 %; White Blood Count 7.5 K/mcL (4.3-11.1)
[2019-02-19 08:43] LABS: Alanine Aminotransferase 19 Units/L (7-52); Albumin 3.5 g/dL (3.5-5.7); Albumin/Globulin Ratio 1.6 (1.1-2.2); Alkaline Phosphatase 63 Units/L (34-104); Aspartate Amino Transferase 19 Units/L (13-39); BUN/Creatinine Ratio 18 (6-26); Bilirubin,Total 0.7 mg/dL (0.3-1.0); Blood Urea Nitrogen 16 mg/dL (8-23); Calcium 8.6 mg/dL (8.6-10.3); Carbon Dioxide 21 mEq/L (23-29); Chloride 110 mEq/L (98-107); Chol/HDL Ratio 3.6 (0-4.9); Cholesterol 159 mg/dL (< 200); Globulin 2.2 g/dL (2.4-3.5); Glucose 98 mg/dL (70-105); HDL Cholesterol 44 mg/dL (40-59); LDL Cholesterol,Calculated 97 mg/dL (0-99); Magnesium 1.9 mg/dL (1.6-2.6); Osmolality,Calculated 289 (280-300); Potassium 4.4 mEq/L (3.5-5.1); Sodium 139 mEq/L (136-145); Total Protein 5.7 g/dL (6.4-8.9); Triglycerides 90 mg/dL (< 150); eGFR For African Americans > 60 (> 60); eGFR For Non-African Americans > 60 (> 60)
[2019-02-19 11:12] VITALS: BP 119/72
== END 2019-02-19 12:34 | disposition home or self-care (01) ==
LOC: CDU 02:30 → EMEROOARM 02:30 → SUATTDRO 10:51 → MERGE 10:51 → EDBD 10:51 → CDU 12:39
PROVIDERS: ADMIT Internal Medicine; ATTEND Family Medicine